=== PATIENT | female | born 1940 | race Caucasian/White ===

== ENCOUNTER → 2016-12-07 | Outpatient (CLI) | payer MEDICARE, BC ==
--- NOTE | 2016-12-08 10:02 | ECHOF ---
Referral Reason:R94.31 Abnormal EKG MEASUREMENTS -------- HEIGHT: 165.1 cm WEIGHT: 68.0 kg BP: 151/69 IVSd: 1.4 cm (0.6 - 1.1) LVIDd: 3.1 cm (3.9 - 5.3) LVPWd: 1.2 cm (0.6 - 1.1) IVSs: 1.8 cm LVIDs: 1.9 cm LVPWs: 1.6 cm LAESV Index (A-L): 21.24 ml/m Ao Diam: 3.2 cm (2.0 - 3.7) AV Cusp: 1.8 cm (1.5 - 2.6) LA Diam: 3.6 cm (2.7 - 3.8) MV EXCURSION: 13.883 mm (> 18.000) MV EF SLOPE: 44 mm/s (70 - 150) EPSS: 0.3 cm MV E Jay: 0.99 m/s MV DecT: 168 ms MV A Jay: 1.63 m/s MV E/A Ratio: 0.61 RAP: 5.00 mmHg RVSP: 9.56 mmHg FINDINGS -------- Undetermined rhythm. This was a technically good study. There is moderate concentric left ventricular hypertrophy. There is mild global hypokinesis of LV . Overall left ventricular systolic function is mildly impaired with, an EF between 45 - 50 %. The right ventricle is normal in size and function. The left atrium is normal in size. The right atrium is normal in size. Aortic valve is trileaflet and is mildly thickened. The mitral valve leaflets are mildly thickened. Mild mitral regurgitation is present. Mild tricuspid regurgitation present. The right ventricular systolic pressure, as measured by Doppler, is 9.56mmHg. Pulmonic valve appears structurally normal. The aortic root size is normal. The pericardium is normal. CONCLUSIONS -------- 1. Undetermined rhythm. 2. Mild mitral regurgitation is present. 3. Mild tricuspid regurgitation present. 4. The right ventricular systolic pressure, as measured by Doppler, is 9.56mmHg. 5. Pulmonic valve appears structurally normal. 6. The aortic root size is normal. 7. The pericardium is normal. 8. This was a technically good study. 9. There is moderate concentric left ventricular hypertrophy. 10. Overall left ventricular systolic function is mildly impaired with, an EF between 45 - 50 %. 11. The right ventricle is normal in size and function. 12. The left atrium is normal in size. 13. The right atrium is normal in size. 14. Aortic valve is trileaflet and is mildly thickened. 15. The mitral valve leaflets are mildly thickened. TELETYPE TECHNICIAN: Viviana Gil RDCS
== END | disposition home or self-care (01) ==
LOC: RADECHMAIN 16:11
PROVIDERS: ATTEND Family Medicine
DX: I08.3 Combined rheumatic disorders of mitral, aortic and tricuspid valves (principal)
CPT/HCPCS: 93306

== ENCOUNTER → 2016-12-28 | Outpatient (CLI) | payer MEDICARE, BC ==
--- NOTE | 2016-12-29 07:20 | XR ---
EXAMINATION TYPE: XR abdomen 1V , 2 VIEWS DATE OF EXAM ORDERED: 12/28/2016 HISTORY: K59.00 Constipation. COMPARISON: None. FINDINGS: There has been a dynamic left hip pinning. The abdominal gas pattern is within normal limits. There is no evidence of obstruction or free air. T here are phleboliths within the pelvis. There is a moderate stool load. IMPRESSION: CONSTIPATION.
== END ==
LOC: RADXRMAIN 15:47
PROVIDERS: ATTEND Family Medicine
DX: K59.00 Constipation, unspecified (principal)
CPT/HCPCS: 74000

== ENCOUNTER 2017-01-20 06:53 | Day surgery (SDC) | payer MEDICARE, BC ==
[2017-01-18 10:31] VITALS: BMI 21.4
[~2017-01-20 06:53] MED LIST: LACTATED RINGERS 1,000 ML IV SCH; LIDOCAINE 1% 20 ML VIAL (10MG/ML) FOR IV START INTRADERMA PRN
[2017-01-20 07:12] VITALS: RESP 18; TEMP 97.3
[2017-01-20 07:14] LABS: Glucose,Whole Blood 164 mg/dL (75-99)
--- NOTE | 2017-01-20 07:31 | P.GSHP ---
History of Present Illness H&P Date: 01/20/17 CHIEF COMPLAINT: Colon screen HISTORY OF PRESENT ILLNESS: The patient is a 76-year-old female who presents for colon screen. Lower endoscopy was offered for further evaluation and management. PAST MEDICAL HISTORY: Please see list. PAST SURGICAL HISTORY: Please see list. MEDICATIONS: Please see list. ALLERGIES: Please see list. SOCIAL HISTORY: No illicit drug use FAMILY HISTORY: No reports of Crohn disease or ulcerative colitis. REVIEW OF ORGAN SYSTEMS: CONSTITUTIONAL: No reports of fevers or chills. PHYSICAL EXAM: VITAL SIGNS: Stable GENERAL: Well-developed pleasant in no acute distress. HEENT: No scleral icterus. Extraocular movements grossly intact. Moist buccal mucosa. NECK: Supple without lymphadenopathy. CHEST: Unlabored respirations. Equal bilateral excursions. CARDIOVASCULAR: Regular rate and rhythm. Distal 2+ pulses. ABDOMEN: Soft, nontender, nondistended. MUSCULOSKELETAL: No clubbing, cyanosis, or edema. ASSESSMENT: 1. Colon screen. PLAN: 1. Recommend proceeding with a lower endoscopy Past Medical History Past Medical History: CVA/TIA, Diabetes Mellitus, Hypertension, Osteoarthritis ( OA), Sleep Apnea/CPAP/BIPAP Additional Past Medical History / Comment(s): migraines, TIA, hx fx left hip- uses cane due to balance problems, no cpap used, hiatal hernia, irregular bowel movements, constipation, frequent night time urination, insulin pump History of Any Multi-Drug Resistant Organisms: None Reported Past Surgical History: Appendectomy, Ear Surgery, Hysterectomy, Tonsillectomy Additional Past Surgical History / Comment(s): D&C x 2, shmuel cataracts, left ear cochlear implant Past Anesthesia/Blood Transfusion Reactions: Previous Problems w/ Anesthesia Additional Past Anesthesia/Blood Transfusion Reaction / Comment(s): slow coming out of anesthesia Past Psychological History: Anxiety Smoking Status: Never smoker Past Alcohol Use History: None Reported Past Drug Use History: None Reported - Past Family History Son(s) Family Medical History: Cancer Medications and Allergies Home Medications Medication Instructions Recorded Confirmed Type Cholecalciferol [Vitamin D3] 1,000 unit PO DAILY 01/18/17 01/20/17 History Insulin Glulisine (For Pump) 0.01 units SQ-PUMP CONTINUOUS 01/18/17 01/20/17 History [Apidra (For Pump)] L.acidoph,Paracasei, B.lactis 1 each PO DAILY 01/18/17 01/20/17 History [Probiotic] Multivitamins, Thera [Multivitamin 1 tab PO DAILY 01/18/17 01/20/17 History (formulary)] Pramipexole [Mirapex] 0.5 mg PO HS 01/18/17 01/20/17 History Rosuvastatin [Crestor] 20 mg PO HS 01/18/17 01/20/17 History Vit C/E/Zn/Coppr/Lutein/Zeaxan 1 each PO DAILY 01/18/17 01/20/17 History [Preservision Areds 2 Softgel] amLODIPine [Norvasc] 10 mg PO HS 01/18/17 01/20/17 History Allergies Allergy/AdvReac Type Severity Reaction Status Date / Time No Known Allergies Allergy Verified 01/18/17 10:54 Surgical - Exam Vital Signs Temp Pulse Resp BP Pulse Ox 97.3 F L 81 18 159/72 96 01/20/17 07:09 01/20/17 07:09 01/20/17 07:09 01/20/17 07:09 01/20/17 07:09 Results - Labs Abnormal Lab Results - Last 24 Hours (Table) 01/20/17 Range/Units 07:12 POC Glucose (mg/dL) 164 H (75-99) mg/dL
[2017-01-20] MEDS ORDERED: LIDOCAINE 1% INJ 10MG/ML (20 ML MDV) ONE (07:32)
[2017-01-20] MEDS ORDERED: PROPOFOL 10 MG/ML 20 ML VIAL IV ONE (07:32)
[2017-01-20 07:37] LABS: Basophils # (A) 0.1 k/uL (0-0.2); Basophils % (A) 1 %; CH 30.3; CHCM 34.2; Eosinophils # (A) 0.3 k/uL (0-0.7); Eosinophils % (A) 4 %; HCT 40.9 % (34.0-46.0); HDW 2.48; HGB 13.5 gm/dL (11.4-16.0); Luc # (Auto) 0.14; Luc % (Auto) 2; Lymphocytes # (A) 1.7 k/uL (1.0-4.8); Lymphocytes % (A) 25 %; MCH 29.5 pg (25.0-35.0); MCHC 33.1 g/dL (31.0-37.0); Mean Platelet Volume 7.4; Monocytes # (A) 0.5 k/uL (0-1.0); Monocytes % (A) 7 %; Neutrophils # (A) 4.1 k/uL (1.3-7.7); Neutrophils % (A) 61 %; RBC 4.59 m/uL (3.80-5.40); RDW 13.7 % (11.5-15.5); WBC 6.6 k/uL (3.8-10.6); WBC (Perox) 6.58
[2017-01-20 07:59] LABS: Anion Gap 10 mmol/L; Blood Urea Nitrogen 7 mg/dL (7-17); Carbon Dioxide 25 mmol/L (22-30); Chloride 99 mmol/L (98-107); Non-African American GFR(MDRD) >60 (>60 ml/min/1.73 sqM); Potassium 4.4 mmol/L (3.5-5.1); Sodium 134 mmol/L (137-145)
--- NOTE | 2017-01-20 08:02 | P.PCN ---
Date of Procedure: 01/20/17 Preoperative Diagnosis: Postoperative Diagnosis: Procedure(s) Performed: Implants: Indications for Procedure: Operative Findings: Description of Procedure: PREOPERATIVE DIAGNOSIS: Colonoscopy screening. Chronic constipation. POSTOPERATIVE DIAGNOSIS: Colonoscopy screening. Chronic constipation. Rectal polyp. Transverse colon polyp. External hemorrhoids. OPERATION: Colonoscopy to the proximal ascending colon. Colonoscopy with snare polypectomy and mid transverse colon. Colonoscopy with cold forceps biopsy at rectum. SURGEON: Dia Easley MD. ANESTHESIA: MAC. INDICATIONS: The patient is a 76-year-old female who presents for colonoscopy screening. Benefits and risks were described and informed consent was obtained. DESCRIPTION OF PROCEDURE: The patient had undergone Gatorade, MiraLAX and Dulcolax prep. She had been brought into the operating room and laid in the left lateral decubitus position. After adequate intravenous sedation, the rectum was examined with 2% lidocaine jelly. External hemorrhoids were encountered. The rectal tone was within normal limits. No lesions were palpated in the rectal vault. She had moderately redundant and floppy sigmoid colon where abdominal pressure was used to advance the scope. Given the length of her colon, the Olympus colonoscope was advanced to the ascending colon. The prep was fair with moderate liquid stool, nonadherent. The scope was removed with visualization of each mucosal fold. No scattered diverticulosis was encountered. The mid transverse colon, a flat 8 mm adenoma was snare polypectomy to completion. At the rectum, a 4 mm hyperplastic polyp was cold forceps biopsy. No evidence of focal colitis was found. Retroflexion of the scope demonstrated grade 2 internal hemorrhoids without active bleeding or inflammation. The colon was desufflated. The patient had tolerated the procedure well. Withdrawal time was over 6 minutes. FINDINGS: Internal hemorrhoids, grade 1 No external prolapsed hemorrhoids. No arteriovenous malformations. The mid transverse colon, a flat 8 mm adenoma was snare polypectomy to completion. At the rectum, a 4 mm hyperplastic polyp was cold forceps biopsy. No focal colitis. RECOMMENDATIONS: Lower endoscopy in 3-5 years with personal history of colon polyps. She is scheduled for a sigmoid colectomy for history of sigmoid volvulus. Plan - Discharge Summary New Discharge Prescriptions: No Action Rosuvastatin [Crestor] 20 mg PO HS Multivitamins, Thera [Multivitamin (formulary)] 1 tab PO DAILY Pramipexole [Mirapex] 0.5 mg PO HS amLODIPine [Norvasc] 10 mg PO HS L.acidoph,Paracasei, B.lactis [Probiotic] 1 each PO DAILY Insulin Glulisine (For Pump) [Apidra (For Pump)] 0.01 units SQ-PUMP CONTINUOUS Cholecalciferol [Vitamin D3] 1,000 unit PO DAILY Vit C/E/Zn/Coppr/Lutein/Zeaxan [Preservision Areds 2 Softgel] 1 each PO DAILY Discharge Medication List Cholecalciferol [Vitamin D3] 1,000 unit PO DAILY 01/18/17 [History] Insulin Glulisine (For Pump) [Apidra (For Pump)] 0.01 units SQ-PUMP CONTINUOUS 01/18/17 [History] L.acidoph,Paracasei, B.lactis [Probiotic] 1 each PO DAILY 01/18/17 [History] Multivitamins, Thera [Multivitamin (formulary)] 1 tab PO DAILY 01/18/17 [History ] Pramipexole [Mirapex] 0.5 mg PO HS 01/18/17 [History] Rosuvastatin [Crestor] 20 mg PO HS 01/18/17 [History] Vit C/E/Zn/Coppr/Lutein/Zeaxan [Preservision Areds 2 Softgel] 1 each PO DAILY [History] amLODIPine [Norvasc] 10 mg PO HS 01/18/17 [History] Follow up Appointment(s)/Referral(s): Dia Easley MD [STAFF PHYSICIAN] - 01/25/17 (For your surgery) Patient Instructions/Handouts: Constipation (GEN), Laparoscopic Bowel Resection (DC), Colectomy (DC) Activity/Diet/Wound Care/Special Instructions: Full liquid diet until Wednesday. Please start bowel prep on Wednesday. Discharge Disposition: HOME SELF-CARE
[2017-01-20 08:19] LABS: Glucose,Whole Blood 165 mg/dL (75-99)
[2017-01-20 08:25] VITALS: BP 143/78; PULSE 77
--- NOTE | 2017-01-20 08:34 | XR ---
2 view abdomen HISTORY: Abdomen pain and distention 2 views of the abdomen are submitted Dilated loops of colon likely due to patient's procedure. No evident pneumoperitoneum. Lung bases are clear. Postop change noted to the left hip. Bone mineralization is reduced. Probable phleboliths in the pelvis, vascular calcifications are extensive. IMPRESSION: Postprocedural findings as described, follow-up as indicated.
== END 2017-01-20 09:13 | disposition home or self-care (01) ==
LOC: ORWHC2ENDO 06:53
PROVIDERS: ATTEND Surgery Plastic and Reconstructive Surgery
DX: K63.5 Polyp of colon (principal); K64.0 First degree hemorrhoids; K64.4 Residual hemorrhoidal skin tags; I10 Essential (primary) hypertension; G47.33 Obstructive sleep apnea (adult) (pediatric); E11.9 Type 2 diabetes mellitus without complications; Z79.4 Long term (current) use of insulin; Z96.41 Presence of insulin pump (external) (internal); Q43.8 Other specified congenital malformations of intestine; Z86.73 Personal history of transient ischemic attack (TIA), and cerebral infarction without residual deficits; M19.90 Unspecified osteoarthritis, unspecified site; Z79.899 Other long term (current) drug therapy
CPT/HCPCS: 45380; 45385; 74020; 80051; 82565; 84520; 85025; 86850; 86900; 86901; 88305

== ENCOUNTER 2017-01-25 07:30 | Inpatient (IN) | payer MEDICARE, BC ==
[2017-01-18 11:04] VITALS: BMI 21.4
[~2017-01-25 07:30] MED LIST changes: +DEXAMETHASONE SOD PHOSPHATE 10 MG/ML 1 ML VIAL IV ONE; +HEPARIN SODIUM,PORCINE 5,000 UNIT/ML 1 ML VIAL SQ ONE; +HYDROmorphone 1 MG/ML 1 ML SYRINGE IVP PRN; -LACTATED RINGERS 1,000 ML IV SCH; -LIDOCAINE 1% 20 ML VIAL (10MG/ML) FOR IV START INTRADERMA PRN; +ONDANSETRON 4 MG/2 ML VIAL IVP ONE; +ceFAZolin 2 GM in SODIUM CHLORIDE 0.9% 100 ML IVPB ONE; +metroNIDAZOLE-NS PMX 500 MG in SALINE 1 100ML.BAG IVPB ONE
--- NOTE | 2017-01-25 11:21 | P.GSHP ---
History of Present Illness H&P Date: 01/25/17 CHIEF COMPLAINT: History of sigmoid volvulus HISTORY OF PRESENT ILLNESS: The patient is a 76-year-old female with long- standing history of chronic constipation including large bowel obstruction secondary to sigmoid volvulus. She completed a colonoscopy which excluded underlying neoplasm. Now she presents for sigmoid colon resection. PAST MEDICAL HISTORY: Please see list. PAST SURGICAL HISTORY: Please see list. MEDICATIONS: Please see list. ALLERGIES: Please see list. SOCIAL HISTORY: No illicit drug use FAMILY HISTORY: No reports of Crohn disease or ulcerative colitis. REVIEW OF ORGAN SYSTEMS: CONSTITUTIONAL: Denies any fever or chills. HEENT: Denies any trouble with vision or nosebleeds. No difficulty swallowing. She is hard of hearing. LYMPHATIC: The patient denies any lumps and bumps around the neck. ENDOCRINE: Denies any thyroid disorders. Has blood sugar glucose intolerance. RESPIRATORY: Denies pneumonia. Denies any troubles with breathing or dyspnea on exertion. CARDIOVASCULAR: Denies any chest pain, palpitations, or recent heart attacks. 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 GASTROINTESTINAL: Has constipation and recent colonoscopy 1 week ago. GENITOURINARY: Has increased urinary frequency. MUSCULOSKELETAL: Has back pain, stiffness, joint arthritis. NEUROLOGIC: Denies any numbness or tingling along the distal extremities. No seizure disorders or headaches. PSYCHIATRIC: Denies depression or suidical ideation. HEMATOLOGIC: Denies any abnormal bleeding or bruising. PHYSICAL EXAM: VITAL SIGNS: Stable GENERAL: Well-developed pleasant in no acute distress. HEENT: No scleral icterus. Extraocular movements grossly intact. Moist buccal mucosa. He is hard of hearing. NECK: Supple without lymphadenopathy. CHEST: Unlabored respirations. Equal bilateral excursions. CARDIOVASCULAR: Regular rate and rhythm. Distal 2+ pulses. ABDOMEN: Soft, nontender, nondistended. MUSCULOSKELETAL: No clubbing, cyanosis, or edema. NERUO: Regular 2-12 grossly intact. PSYCH: Alert and oriented to person place and time. ASSESSMENT: 1. History of previous large bowel obstruction. 2. Sigmoid volvulus. 3. Insulin-dependent diabetes type 2. 4. Hypertensive heart disease with cardiomyopathy. PLAN: 1. Benefits and risks of surgical intervention particular sigmoid volvulus reviewed in detail. Robotic-assisted approach was also described. 2. She has completed an enhanced colon recovery program. 3. DVT prophylaxis. 4. Antibiotic prophylaxis. Past Medical History Past Medical History: CVA/TIA, Diabetes Mellitus, Hypertension, Osteoarthritis ( OA), Sleep Apnea/CPAP/BIPAP Additional Past Medical History / Comment(s): migraines, TIA, hx fx left hip- uses cane due to balance problems, no cpap used, hiatal hernia, irregular bowel movements, constipation, frequent night time urination, insulin pump History of Any Multi-Drug Resistant Organisms: None Reported Past Surgical History: Appendectomy, Ear Surgery, Hysterectomy, Tonsillectomy Additional Past Surgical History / Comment(s): D&C x 2, shmuel cataracts, left ear cochlear implant Past Anesthesia/Blood Transfusion Reactions: Previous Problems w/ Anesthesia Additional Past Anesthesia/Blood Transfusion Reaction / Comment(s): slow coming out of anesthesia Past Psychological History: Anxiety Smoking Status: Never smoker Past Alcohol Use History: None Reported Past Drug Use History: None Reported - Past Family History Son(s) Family Medical History: Cancer Medications and Allergies Home Medications Medication Instructions Recorded Confirmed Type Cholecalciferol [Vitamin D3] 1,000 unit PO DAILY 01/18/17 01/20/17 History Insulin Glulisine (For Pump) 0.01 units SQ-PUMP CONTINUOUS 01/18/17 01/20/17 History [Apidra (For Pump)] L.acidoph,Paracasei, B.lactis 1 each PO DAILY 01/18/17 01/20/17 History [Probiotic] Multivitamins, Thera [Multivitamin 1 tab PO DAILY 01/18/17 01/20/17 History (formulary)] Pramipexole [Mirapex] 0.5 mg PO HS 01/18/17 01/20/17 History Rosuvastatin [Crestor] 20 mg PO HS 01/18/17 01/20/17 History Vit C/E/Zn/Coppr/Lutein/Zeaxan 1 each PO DAILY 01/18/17 01/20/17 History [Preservision Areds 2 Softgel] amLODIPine [Norvasc] 10 mg PO HS 01/18/17 01/20/17 History Allergies Allergy/AdvReac Type Severity Reaction Status Date / Time No Known Allergies Allergy Verified 01/18/17 10:54
[2017-01-25 11:41] LABS: Glucose,Whole Blood 273 mg/dL (75-99)
[2017-01-25] MEDS ORDERED: LIDOCAINE 1% 20 ML VIAL (10MG/ML) FOR IV START INTRADERMA ONE ×2 (11:49→12:09)
[2017-01-25] MEDS: LACTATED RINGERS 1,000 ML IV SCH ×2 (11:49→12:12)
[2017-01-25] MEDS ORDERED: INSULIN LISPRO (humaLOG) 300 UNIT/3 ML VIAL SQ ONE (12:01)
[2017-01-25] MEDS ORDERED: LIDOCAINE 1% INJ 10MG/ML (20 ML MDV) ONE (12:24)
[2017-01-25] MEDS ORDERED: PROPOFOL 10 MG/ML 20 ML VIAL IV ONE (12:24)
[2017-01-25] MEDS ORDERED: GLYCOPYRROLATE 0.2 MG/ML 2 ML VIAL ONE (12:24)
[2017-01-25] MEDS ORDERED: fentaNYL (PF) 50 MCG/ML 2 ML AMP ONE (12:24)
[2017-01-25] MEDS ORDERED: VECURONIUM 10 MG VIAL IV ONE (12:24)
[2017-01-25] MEDS ORDERED: NEOSTIGMINE 1 MG/ML 10 ML VIAL ONE (12:24)
[2017-01-25] MEDS ORDERED: ePHEDrine SULFATE/0.9% NACL/PF 50 MG/5 ML SYRINGE IV ONE (12:24)
[2017-01-25] MEDS ORDERED: SUCCINYLCHOLINE CHLORIDE 100 MG/5 ML SYR IV ONE (12:24)
[2017-01-25] MEDS ORDERED: BUPIVACAINE-EPI 0.5%-1:200,000 10 ML VIAL SQ ONE (13:00)
[2017-01-25 13:32] LABS: Glucose,Whole Blood 168 mg/dL (75-99)
[2017-01-25 14:42] LABS: Glucose,Whole Blood 152 mg/dL (75-99)
[2017-01-25] MEDS ORDERED: HYDROmorphone 1 MG/ML 1 ML SYRINGE IVP PRN ×2 (15:44→20:56)
[2017-01-25] MEDS ORDERED: BENZOCAINE/MENTHOL LOZENG 1 EACH LOZENGE MUCOUS MEM PRN (15:44)
--- NOTE | 2017-01-25 15:44 | P.PCN ---
Date of Procedure: 01/25/17 Preoperative Diagnosis: History of large bowel obstruction, chronic constipation, sigmoid volvulus Postoperative Diagnosis: Same Procedure(s) Performed: Robotic assisted laparoscopic reduction of sigmoid volvulus with sigmoid colectomy Implants: Anesthesia: GETA, local Surgeon: Dia Easley Estimated Blood Loss (ml): 5 Pathology: other (Sigmoid volvulus) Condition: stable Disposition: floor Indications for Procedure: Operative Findings: 1. Active sigmoid volvulus involving redundant sigmoid colon over 1.5 feet of colon involved. 2. Linear intracorporeal anastomosis colorectal anastomosis using 45 mm blue staple load. 3. At least 8 staplers robotic used, 45 mm blue load. 4. Robotic arms using multiport, stapler along the right lower quadrant. 5. All ports place 15 to 20 cm away from target anatomy, the sigmoid colon. 6. Specimen extracted from the right upper quadrant port. 7. Contaminated case as liquid stool found within the remnant sigmoid colon for anastomosis. Description of Procedure:
[2017-01-25 15:59] LABS: Glucose,Whole Blood 186 mg/dL (75-99)
--- NOTE | 2017-01-25 16:59 | P.OP ---
Date of Procedure: 01/25/17 Preoperative Diagnosis: Postoperative Diagnosis: Procedure(s) Performed: Implants: Condition: other Indications for Procedure: Operative Findings: Description of Procedure: SURGEON: SHAVONNE QUIJANO MD HAND COMPOSITOR: DAVINA SHAFFER PREOPERATIVE DIAGNOSES: 1. Sigmoid volvulus. 2. History of chronic large bowel obstruction. 3. Chronic constipation. 4. Diabetes type 2 insulin dependence. 5. Hypertensive heart disease with cardiomyopathy. 6. Previous history of cerebrovascular accident. 7. Obstructive sleep apnea. History of cochlear implant with history of deafness POSTOPERATIVE DIAGNOSES: 1. Sigmoid volvulus. 2. History of chronic large bowel obstruction. 3. Chronic constipation. 4. Diabetes type 2 insulin dependence. 5. Hypertensive heart disease with cardiomyopathy. 6. Previous history of cerebrovascular accident. 7. Obstructive sleep apnea. OPERATION: 1. Robotic-assisted laparoscopic reduction of sigmoid volvulus with sigmoid colectomy and primary colo-Fullerton rectal anastomosis ANESTHESIA: General with 30 mL Marcaine with epinephrine. ESTIMATED BLOOD LOSS: 5 mL SPECIMENS REMOVED: 1.5 foot sigmoid colon with volvulus. FINDINGS: 1. Active sigmoid volvulus involving redundant sigmoid colon over 1.5 feet of colon involved. 2. Linear intracorporeal anastomosis colorectal anastomosis using 45 mm blue staple load. 3. At least 8 staplers robotic used, 45 mm blue load. 4. Robotic arms using multiport, stapler along the right lower quadrant. 5. All ports place 15 to 20 cm away from target anatomy, the sigmoid colon. 6. Specimen extracted from the right upper quadrant port. 7. Contaminated case as liquid stool found within the remnant sigmoid colon for anastomosis. INDICATIONS: The patient is a 76-year-old female who presents with several year history of chronic and recurrent large bowel obstruction including chronic constipation. Diagnostic studies are consistent with sigmoid volvulus. Surgical options were described to the patient and her family including colon resection and possible colostomy. Benefits and risks, including infection, possibility for additional surgery, including possible colostomy was discussed at length. Informed consent was obtained. All questions of the patient and family were answered. DESCRIPTION: Earlier the patient had undergone a bowel prep using the enhanced colon recovery program. The patient was transferred to the operating room onto a split leg table. The patient was then intubated. A Bradley catheter was placed. The abdomen was then prepped and draped in standard sterile fashion. After a timeout protocol was performed, attention was then brought to the left upper quadrant whereby a 0 degree 5 mm laparoscopic trocar entry was performed. The abdominal cavity was entered and insufflated to 15 mmHg pressure, which she tolerated well. Diagnostic laparoscopy confirmed an active sigmoid volvulus with moderately distended sigmoid colon causing intermittent large bowel obstruction. The sigmoid colon was moderately redundant. No additional intra-abdominal adhesions were found. Next an robotic 8-mm trocar was placed along the left lateral abdominal wall 20 cm proximal from the pelvis. A 12 mm port was placed along the epigastrium and followed by another robotic 13-mm port placed along the right lateral abdominal wall. Ports were placed 10 to 13 cm apart from each other including 15-20 cm away from the target anatomy of the left pelvis. The 5-mm port was exchanged for an 8 mm robotic port. The stapler 13-mm port was arranged along the right lateral abdominal wall. The patient was then placed in Trendelenburg position. The anterior surface of the volvulized sigmoid colon was marked using indelible marker. The robotic da Kenneth SI system was primed. The robot was docked between the legs of the patient. Using a grasper for arm 1, a grasper for arm 2, including hook vessel sealer for arm 1, the robotic system was docked and primed as described. Instruments were interchanged by the political science research assistant including hook cautery, needle tow car driver, robotic stapler and vessel sealer. The robot stapler was prepared along the right lateral abdominal wall. Next, attention was brought to identify the rectum. A stay suture using 0 silk was placed along the anterior serosa of the descending colon including along the rectum. An active sigmoid volvulus was identified and rotated along its normal anatomical position along its mesentery. The volvulus was reduced. The sigmoid mesentery was mobilized using a vessel sealer whereby the distal sigmoid colon was marked and tagged. Using 2 fires of the robot stapler 45 mm blue load, the distal redundant sigmoid colon was divided. The mesentery of the sigmoid colon was mobilized towards the descending colon using a vessel sealer. Next, the proximal sigmoid colon was divided using 2 fires of the robotic stapler 45 mm blue load. The descending colon was similarly marked using 2-0 Vicryl. The rest of the sigmoid colon mesentery was mobilized using vessel sealer. The distal colorectal stump was tacked to the anterior dominant wall using 2-0 Vicryl as a stay stitch. The proximal and distal colon was brought in an isoperistaltic fashion after placing interrupted sutures along the proposed brittany- lumen using 2-0 Vicryl. Along the tinea coli of the proximal including distal limbs, a colotomy was prepared along both limbs. Next, a 45 mm stapler was fired to create the brittany-lumen. The colotomy of the brittany-lumen was reapproximated using 2-0 Vicryl followed by 2 firings of a 45 mm blue load. Stool was identified along the proximal limb hence making it a contaminated case. All needles were removed from the abdominal cavity. The robot was undocked. I re-scrubbed into the case. Via the 12 mm port, the closed colotomy was removed using Endo Catch bag. All sponges were removed from the abdominal cavity. The distal portion of the resected colon was brought out through the 12 mm trocar of the right upper quadrant quadrant after widening the skin incision. The distal end of the colon which had been tagged using a fenestrated grasper was then brought out through the incision. No contamination had occurred throughout this portion of the case. Next, the specimen was brought out through the skin incision. The 12-mm fascial defect was oversewn using 0 Vicryl and a Gab Garcia. Similarly, the 13 mm trocar site of the right lower quadrant was also oversewn along its fascia using 0 Vicryl and a Gab Garcia. Next all pneumoperitoneum was evacuated from the abdominal cavity. The 8-mm trocar sites were reapproximated using 4-0 Monocryl in an interrupted subcuticular fashion. The larger trocar sites were irrigated using warm normal saline solution of the colon extraction site. Suture 3-0 Vicryl was used to reapproximate the subcutaneous tissue followed by 4-0 Monocryl in an interrupted subcuticular fashion. Local anesthetic was infiltrated to all wounds for postop analgesia. The rest of the incisions were also cleansed with diluted hydrogen peroxide. An Optifoam surgical dressing was placed over the epigastrium of the colon extraction site. Dermabond was applied to the rest of the skin incisions. The patient had tolerated the procedure well. Estimated blood loss was approximately 5 mL. The patient was extubated successfully. Intraoperative photos were reviewed with the patient's family who were overall pleased with the level of care. The patient was transferred to the postanesthesia care unit in stable condition.
[2017-01-25 17:09] LABS: Glucose,Whole Blood 223 mg/dL (75-99)
[2017-01-25] MEDS: ceFAZolin 2 GM in SODIUM CHLORIDE 0.9% 100 ML IVPB SCH ×2 (17:43→23:16)
[2017-01-25] MEDS: INSULIN LISPRO (humaLOG) 300 UNIT/3 ML VIAL SQ SCH (17:50)
[2017-01-25] MEDS: ONDANSETRON 4 MG/2 ML VIAL IVP PRN (18:33)
[2017-01-25] MEDS: metroNIDAZOLE-NS PMX 500 MG in SALINE 1 100ML.BAG IVPB SCH (19:19)
[2017-01-25 20:24] LABS: Glucose,Whole Blood 217 mg/dL (75-99)
--- NOTE | 2017-01-25 20:58 | P.PN ---
Progress Note - Text Patient seen and evaluated. Pain is controlled. Await passage of flatus. Potential discharge in 24-48 hours.
[2017-01-25] MEDS: PRAMIPEXOLE 0.5 MG TAB PO SCH (21:00)
[2017-01-25] MEDS: amLODIPine 10 MG TAB PO SCH (21:00)
[2017-01-25] MEDS: SODIUM CHLORIDE 0.9% 1,000 ML IV SCH (21:08)
[2017-01-26] MEDS: metroNIDAZOLE-NS PMX 500 MG in SALINE 1 100ML.BAG IVPB SCH ×5 (01:28→23:07)
[2017-01-26 07:36] LABS: Glucose,Whole Blood 265 mg/dL (75-99)
[2017-01-26] MEDS: SODIUM CHLORIDE 0.9% 1,000 ML IV SCH ×3 (08:03→20:24)
[2017-01-26] MEDS: INSULIN LISPRO (humaLOG) 300 UNIT/3 ML VIAL SQ SCH ×3 (08:05→17:16)
[2017-01-26] MEDS: ceFAZolin 2 GM in SODIUM CHLORIDE 0.9% 100 ML IVPB SCH ×2 (08:07→17:11)
[2017-01-26 08:13] LABS: Anion Gap 13 mmol/L; Blood Urea Nitrogen 13 mg/dL (7-17); Calcium 9.3 mg/dL (8.4-10.2); Carbon Dioxide 24 mmol/L (22-30); Chloride 97 mmol/L (98-107); Glucose 259 mg/dL (74-99); Magnesium 1.5 mg/dL (1.6-2.3); Non-African American GFR(MDRD) >60 (>60 ml/min/1.73 sqM); Potassium 4.4 mmol/L (3.5-5.1); Sodium 134 mmol/L (137-145)
[2017-01-26 08:30] LABS: Basophils % (A) 0 %; CH 30.4; CHCM 34.2; Eosinophils % (A) 0 %; HCT 41.2 % (34.0-46.0); HDW 2.48; HGB 14.1 gm/dL (11.4-16.0); Luc # (Auto) 0.05; Luc % (Auto) 0; Lymphocytes # (A) 0.5 k/uL (1.0-4.8); Lymphocytes % (A) 4 %; MCH 30.4 pg (25.0-35.0); MCHC 34.1 g/dL (31.0-37.0); MCV 89.1 fL (80.0-100.0); Mean Platelet Volume 8.2; Monocytes # (A) 0.5 k/uL (0-1.0); Monocytes % (A) 3 %; Neutrophils # (A) 14.5 k/uL (1.3-7.7); Neutrophils % (A) 93 %; RBC 4.63 m/uL (3.80-5.40); RDW 13.9 % (11.5-15.5); WBC 15.5 k/uL (3.8-10.6); WBC (Perox) 15.89
[2017-01-26] MEDS: MAGNESIUM SULFATE-D5W PMX 1 GM in DEXTROSE/WATER 1 100ML.BAG IVPB SCH ×4 (10:34→18:56)
--- NOTE | 2017-01-26 11:36 | P.PN ---
Subjective 76-year-old female being seen this morning on rounds. Patient is postop done on January 25 Robotic-assisted laparoscopic reduction of sigmoid volvulus with sigmoid colectomy and primary colo-[place] rectal anastomosis dressings to surgical site dry. Patient states not passing gas no stool. White count this morning 15.5 patient is afebrile temp is 98.6. Clear liquid diet has been initiated noted that the mag was low at 1.5 this morning replacement is being given patient has a history of cochlear implant with history of deafness Patient is a 76-year-old female who has a several year history of chronic and recurrent large bowel obstruction including chronic constipation. 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 Objective - Vital Signs Vital signs: Vital Signs Temp 98.6 F 01/26/17 07:27 Pulse 84 01/26/17 07:27 Resp 16 01/25/17 17:02 BP 149/70 01/26/17 07:27 Pulse Ox 95 01/26/17 07:27 Intake & Output 01/25/17 01/26/17 01/26/17 18:59 06:59 18:59 Intake Total 1800 1250 Output Total 825 600 Balance 975 1250 -600 Weight 65.771 kg Intake: IV 1800 Intake, IV Titration 1250 Amount Sodium Chloride 0.9% 1, 1050 000 ml @ 100 mls/hr IV . Q10H EFRAIN Rx#:[id number] metroNIDAZOLE-NS PMX 500 200 mg In Saline 1 100ml.bag @ 100 mls/hr IVPB Q6HR EFRAIN Rx#:[id number] Output: Urine 820 600 Estimated Blood Loss 5 Other: Voiding Method Indwelling Catheter Indwelling Catheter - Exam Physical exam Very pleasant 76-year-old female who is deaf resting in bed daughter at bedside Lungs essentially clear with adequate air movement on room air no shortness of breath no cough Heart S1-S2 audible regular Abdomen surgical sites dry soft and not distended slight surgical tenderness few hypoactive bowel tones patient is urinating with no difficulty Extremities no edema - Labs CBC & Chem 7: 01/26/17 07:40 01/26/17 07:40 Labs: Abnormal Lab Results - Last 24 Hours (Table) 01/25/17 01/25/17 01/25/17 Range/Units 11:35 13:19 14:32 WBC (3.8-10.6) k/uL Neutrophils # (1.3-7.7) k/uL Lymphocytes # (1.0-4.8) k/uL Sodium (137-145) mmol/L Chloride (98-107) mmol/L Glucose (74-99) mg/dL POC Glucose (mg/dL) 273 H 168 H 152 H (75-99) mg/dL Magnesium (1.6-2.3) mg/dL 01/25/17 01/25/17 01/25/17 Range/Units 15:56 17:07 20:22 WBC (3.8-10.6) k/uL Neutrophils # (1.3-7.7) k/uL Lymphocytes # (1.0-4.8) k/uL Sodium (137-145) mmol/L Chloride (98-107) mmol/L Glucose (74-99) mg/dL POC Glucose (mg/dL) 186 H 223 H 217 H (75-99) mg/dL Magnesium (1.6-2.3) mg/dL 01/26/17 01/26/17 01/26/17 Range/Units 07:32 07:40 07:40 WBC 15.5 H (3.8-10.6) k/uL Neutrophils # 14.5 H (1.3-7.7) k/uL Lymphocytes # 0.5 L (1.0-4.8) k/uL Sodium 134 L (137-145) mmol/L Chloride 97 L (98-107) mmol/L Glucose 259 H (74-99) mg/dL POC Glucose (mg/dL) 265 H (75-99) mg/dL Magnesium 1.5 L (1.6-2.3) mg/dL Assessment and Plan Plan: Impression Present on admission history of chronic constipation including large bowel obstruction secondary to sigmoid volvulus. Type 2 diabetes insulin-dependent History of a prior CVA History of cochlear implant with history of deafness Status post January 25 Robotic-assisted laparoscopic reduction of sigmoid volvulus with sigmoid colectomy and primary colo-[place] rectal anastomosis Electrolyte abnormality hypo-magnesium Plan Continue postop surgical care Clear liquid diet DVT and GI prophylaxis Increase activity Magnesium to be replaced Pain control Repeat labs in the morning IV antibiotic Flagyl and as ordered Further recommendations pending The above impression and plan of care have been discussed and directed by signing physician. Martine Kurtz nurse practitioner acting as scribe for signing physician.
[2017-01-26 11:43] LABS: Glucose,Whole Blood 301 mg/dL (75-99)
[2017-01-26 16:31] LABS: Glucose,Whole Blood 305 mg/dL (75-99)
[2017-01-26 18:10] LABS: Glucose,Whole Blood 300 mg/dL (75-99)
[2017-01-26] MEDS: amLODIPine 10 MG TAB PO SCH (20:25)
[2017-01-26] MEDS: PRAMIPEXOLE 0.5 MG TAB PO SCH (20:25)
[2017-01-26 21:49] LABS: Glucose,Whole Blood 182 mg/dL (75-99)
[2017-01-27] MEDS: ONDANSETRON 4 MG/2 ML VIAL IVP PRN ×2 (00:07→07:40)
[2017-01-27] MEDS: ceFAZolin 2 GM in SODIUM CHLORIDE 0.9% 100 ML IVPB SCH ×3 (00:57→20:27)
[2017-01-27] MEDS ORDERED: METOCLOPRAMIDE 5 MG/ML 2 ML VIAL IVP PRN (03:36)
[2017-01-27] MEDS: metroNIDAZOLE-NS PMX 500 MG in SALINE 1 100ML.BAG IVPB SCH ×3 (05:25→18:14)
[2017-01-27 05:42] LABS: Glucose,Whole Blood 128 mg/dL (75-99)
[2017-01-27 07:14] LABS: Glucose,Whole Blood 103 mg/dL (75-99)
[2017-01-27 07:49] LABS: Basophils % (A) 0 %; CH 29.7; Eosinophils # (A) 0.1 k/uL (0-0.7); Eosinophils % (A) 0 %; HCT 43.1 % (34.0-46.0); HDW 2.53; HGB 14.6 gm/dL (11.4-16.0); Luc # (Auto) 0.09; Luc % (Auto) 1; Lymphocytes # (A) 0.7 k/uL (1.0-4.8); Lymphocytes % (A) 5 %; MCH 29.6 pg (25.0-35.0); MCHC 33.8 g/dL (31.0-37.0); MCV 87.6 fL (80.0-100.0); Mean Platelet Volume 7.4; Monocytes # (A) 0.7 k/uL (0-1.0); Monocytes % (A) 4 %; Neutrophils # (A) 15.1 k/uL (1.3-7.7); Neutrophils % (A) 91 %; RBC 4.92 m/uL (3.80-5.40); RDW 13.5 % (11.5-15.5); WBC 16.7 k/uL (3.8-10.6); WBC (Perox) 17.11
[2017-01-27 07:59] LABS: Anion Gap 14 mmol/L; Blood Urea Nitrogen 15 mg/dL (7-17); Calcium 9.9 mg/dL (8.4-10.2); Carbon Dioxide 26 mmol/L (22-30); Chloride 99 mmol/L (98-107); Glucose 97 mg/dL (74-99); Magnesium 2.1 mg/dL (1.6-2.3); Non-African American GFR(MDRD) >60 (>60 ml/min/1.73 sqM); Phosphorous 2.7 mg/dL (2.5-4.5); Potassium 3.5 mmol/L (3.5-5.1); Sodium 139 mmol/L (137-145)
[2017-01-27] MEDS: ACETAMINOPHEN TAB 325 MG TAB PO PRN ×2 (10:56→23:57)
--- NOTE | 2017-01-27 11:06 | XR ---
EXAMINATION TYPE: XR abdomen acute w cxr DATE OF EXAM: 01/27/2017 COMPARISON: Prior abdomen 01/20/2017, prior chest x-ray 03/04/2012 HISTORY: Abdominal pain, bowel resection TECHNIQUE: 3 views of abdomen and chest xray on 4 views. FINDINGS: Chest x-ray is stable. There are overlying cardiac leads. There is no evidence for pneumoperitoneum. The bowel gas pattern is remarkable as there is air throughout nondilated small bowel. Large bowel loops mildly prominent. No sizeable air fluid levels. No mass effects are seen. No unusual calcifications. Postop changes are stable. There is a scoliosis. IMPRESSION: Mild prominence of large bowel loops is nonspecific.
[2017-01-27 11:49] LABS: Glucose,Whole Blood 111 mg/dL (75-99)
[2017-01-27] MEDS: 0.9% NACL WITH KCL 20 MEQ/L 1,000 ML IV SCH (13:09)
--- NOTE | 2017-01-27 14:25 | P.PN ---
Subjective 76-year-old female being seen sitting up in bed. Patient is deaf. Patient reports having an episode in the middle the night "I vomited". Currently sitting up drinking tea. Patient states has not passed gas to the rectum or been belching. Abdominal x-ray acute results reviewed no sizable air-fluid levels no mass. Mild prominence of large bowel loops is normocephalic. Patient is postop done on January 25 Robotic-assisted laparoscopic reduction of sigmoid volvulus with sigmoid colectomy and primary colo-[place] rectal anastomosis dressings to surgical site dry Objective - Vital Signs Vital signs: Vital Signs Temp 98 F 01/27/17 09:00 Pulse 95 01/27/17 09:00 Resp 15 01/27/17 09:00 BP 144/60 01/27/17 09:00 Pulse Ox 96 01/27/17 09:00 Intake & Output 01/26/17 01/27/17 01/27/17 18:59 06:59 18:59 Intake Total 1200 1250 240 Output Total 1300 75 Balance -100 1175 240 Intake: Intake, IV Titration 1200 600 Amount Magnesium Sulfate-D5w Pmx 400 100 1 gm In Dextrose/Water 1 100ml.bag @ 100 mls/hr IVPB Q1H EF[facility] Rx#: [id number] Sodium Chloride 0.9% 1, 800 000 ml @ 100 mls/hr IV . Q10H EFRAIN Rx#:[id number] ceFAZolin 2 gm In Sodium 200 Chloride 0.9% 100 ml @ 100 mls/hr IVPB Q8HR EFRAIN Rx#:[id number] metroNIDAZOLE-NS PMX 500 300 mg In Saline 1 100ml.bag @ 100 mls/hr IVPB Q6HR EFRAIN Rx#:[id number] Oral 650 240 Output: Urine 1300 Uretheral ([place]) 400 Emesis 75 Other: Voiding Method Toilet Toilet Toilet Bedside Commode # Voids 1 5 - Exam Physical exam Very pleasant 76-year-old female who is deaf sitting up in bed reports of nausea sensation no emesis Lungs essentially clear with adequate air movement on room air no shortness of breath no cough Heart S1-S2 audible regular denying chest pain Abdomen surgical sites dry soft not distended slight surgical tenderness few hypoactive bowel tones reports a nausea sensation no emesis no stool is not passing gas rectally Extremities no edema - Labs CBC & Chem 7: 08/16/17 06:55 01/27/17 06:55 Labs: Abnormal Lab Results - Last 24 Hours (Table) 01/26/17 01/26/17 01/26/17 Range/Units 07:40 16:29 18:09 WBC (3.8-10.6) k/uL Neutrophils # (1.3-7.7) k/uL Lymphocytes # (1.0-4.8) k/uL POC Glucose (mg/dL) 305 H 300 H (75-99) mg/dL Hemoglobin A1c 7.0 H (4.2-6.1) % 01/26/17 01/27/17 01/27/17 Range/Units 21:45 05:29 06:55 WBC 16.7 H (3.8-10.6) k/uL Neutrophils # 15.1 H (1.3-7.7) k/uL Lymphocytes # 0.7 L (1.0-4.8) k/uL POC Glucose (mg/dL) 182 H 128 H (75-99) mg/dL Hemoglobin A1c (4.2-6.1) % 01/27/17 01/27/17 Range/Units 07:10 11:48 WBC (3.8-10.6) k/uL Neutrophils # (1.3-7.7) k/uL Lymphocytes # (1.0-4.8) k/uL POC Glucose (mg/dL) 103 H 111 H (75-99) mg/dL Hemoglobin A1c (4.2-6.1) % Assessment and Plan Plan: Impression Present on admission history of chronic constipation including large bowel obstruction secondary to sigmoid volvulus. Type 2 diabetes insulin-dependent History of a prior CVA History of cochlear implant with history of deafness Status post January 25 Robotic-assisted laparoscopic reduction of sigmoid volvulus with sigmoid colectomy and primary colo-[place] rectal anastomosis Electrolyte abnormality hypo-magnesium corrected Leukocytosis persist Plan Continue postop surgical care Clear liquid diet DVT and GI prophylaxis Increase activity Increase activity Pain control Repeat labs in the morning IV antibiotic Flagyl and as ordered Further recommendations pending The above impression and plan of care have been discussed and directed by signing physician. Martine Kurtz nurse practitioner acting as scribe for signing physician.
[2017-01-27] MEDS ORDERED: POTASSIUM CHLORIDE ER 20 MEQ TAB.ER PO STA (14:28)
[2017-01-27] MEDS: INSULIN LISPRO (humaLOG) 300 UNIT/3 ML VIAL SQ SCH ×2 (14:34→18:18)
[2017-01-27] MEDS: METOCLOPRAMIDE 5 MG/ML 2 ML VIAL IVP SCH ×2 (14:43→20:27)
[2017-01-27 17:17] LABS: Glucose,Whole Blood 127 mg/dL (75-99)
[2017-01-27] MEDS: PRAMIPEXOLE 0.5 MG TAB PO SCH (20:27)
[2017-01-27] MEDS: amLODIPine 10 MG TAB PO SCH (20:27)
[2017-01-27] MEDS: LACTATED RINGERS 1,000 ML IV SCH (20:38)
[2017-01-27 21:35] LABS: Glucose,Whole Blood 92 mg/dL (75-99)
[2017-01-27] MEDS ORDERED: LEVOFLOXACIN 500MG-D5W PMX 500 MG in DEXTROSE/WATER 1 100ML.BAG IVPB SCH (23:00)
--- NOTE | 2017-01-27 23:07 | P.PN ---
Progress Note - Text Patient seen and evaluated this evening. Her daughter is at bedside. Patient reports that she gets vomiting at home from her hiatal hernia and acid reflux. She states her vomiting is completely unrelated to her procedure. No reports of nausea or vomiting. She is tolerating liquids. She reports "I feel like I have to have a bowel movement." Abdominal films reviewed demonstrating no free air. Gaseous distention of colon seen. Continue antibiotics for history of contaminated case. Repeat labs with expected reactive leukocytosis.
[2017-01-27] MEDS ORDERED: SODIUM CHLORIDE 0.9% 1,000 ML IV ONE (23:11)
[2017-01-28] MEDS: METOCLOPRAMIDE 5 MG/ML 2 ML VIAL IVP SCH ×3 (00:53→11:49)
[2017-01-28] MEDS: metroNIDAZOLE-NS PMX 500 MG in SALINE 1 100ML.BAG IVPB SCH ×2 (01:53→05:06)
[2017-01-28] MEDS: ACETAMINOPHEN TAB 325 MG TAB PO PRN (05:06)
[2017-01-28] MEDS: 0.9% NACL WITH KCL 20 MEQ/L 1,000 ML IV SCH ×2 (05:06→08:23)
[2017-01-28] MEDS: LACTATED RINGERS 1,000 ML IV SCH (05:56)
[2017-01-28 06:50] LABS: Glucose,Whole Blood 55 mg/dL (75-99)
[2017-01-28 07:05] LABS: Glucose,Whole Blood 61 mg/dL (75-99)
[2017-01-28 07:06] LABS: Basophils % (A) 0 %; CH 30.4; CHCM 33.6; Eosinophils # (A) 0.1 k/uL (0-0.7); Eosinophils % (A) 1 %; HCT 42.7 % (34.0-46.0); HDW 2.55; HGB 13.7 gm/dL (11.4-16.0); Luc # (Auto) 0.16; Luc % (Auto) 1; Lymphocytes # (A) 1.8 k/uL (1.0-4.8); Lymphocytes % (A) 14 %; MCH 29.2 pg (25.0-35.0); MCHC 32.2 g/dL (31.0-37.0); MCV 90.9 fL (80.0-100.0); Mean Platelet Volume 7.7; Monocytes # (A) 0.7 k/uL (0-1.0); Monocytes % (A) 6 %; Neutrophils # (A) 9.9 k/uL (1.3-7.7); Neutrophils % (A) 78 %; RDW 14.4 % (11.5-15.5); WBC 12.6 k/uL (3.8-10.6); WBC (Perox) 12.28
[2017-01-28] MEDS: INSULIN LISPRO (humaLOG) 300 UNIT/3 ML VIAL SQ SCH ×2 (07:13→11:38)
[2017-01-28 07:19] LABS: ALT 24 U/L (9-52); AST 28 U/L (14-36); Alkaline Phosphatase 65 U/L (38-126); Anion Gap 11 mmol/L; Blood Urea Nitrogen 10 mg/dL (7-17); Calcium 9.1 mg/dL (8.4-10.2); Carbon Dioxide 23 mmol/L (22-30); Chloride 107 mmol/L (98-107); Non-African American GFR(MDRD) >60 (>60 ml/min/1.73 sqM); Potassium 3.5 mmol/L (3.5-5.1); Sodium 141 mmol/L (137-145); Total Bilirubin 0.4 mg/dL (0.2-1.3); Total Protein 6.1 g/dL (6.3-8.2)
[2017-01-28 07:26] VITALS: BP 147/69; PULSE 90; RESP 12; TEMP 98.2
[2017-01-28 07:29] LABS: Glucose,Whole Blood 94 mg/dL (75-99)
[2017-01-28 07:36] LABS: Glucose 42 mg/dL (74-99)
--- NOTE | 2017-01-28 08:59 | P.PN ---
Subjective 76-year-old female seen and evaluated this morning sitting up in a chair. When questioning patient if the patient has been passing gas rectally the patient says no. no bowel movement. No nausea no vomiting. Patient's roommate inform the nursing staff that the patient had been passing gas rectally all during the night. Labs were reviewed the white count is down to 12.6 this morning was 16.7 yesterday the potassium is 3.5 blood sugars are running in the low side 90s to 60s patient is on a soft diet there's been no reports of nausea vomiting Patient is postop done on January 25 Robotic-assisted laparoscopic reduction of sigmoid volvulus with sigmoid colectomy and primary colo-[place] rectal anastomosis dressings to surgical site dry Objective - Vital Signs Vital signs: Vital Signs Temp 98.2 F 01/28/17 07:25 Pulse 90 01/28/17 07:25 Resp 12 01/28/17 07:25 BP 147/69 01/28/17 07:25 Pulse Ox 96 01/28/17 07:25 Intake & Output 01/27/17 01/28/17 01/28/17 18:59 06:59 18:59 Intake Total 1820 2350 Balance 1820 2350 Intake: Intake, IV Titration 1000 1900 Amount 0.9% NaCl with KCl 20 Meq 800 500 /l 1,000 ml @ 100 mls/hr IV .Q10H EFRAIN Rx#: [id number] Levofloxacin 500Mg-D5w 100 Pmx 500 mg In Dextrose/ Water 1 100ml.bag @ 100 mls/hr IVPB Q24H EFRAIN Rx#: [id number] Sodium Chloride 0.9% 1, 1000 000 ml @ 999 mls/hr IV . Q1H1M ONE Rx#:[id number] ceFAZolin 2 gm In Sodium 100 100 Chloride 0.9% 100 ml @ 100 mls/hr IVPB Q8HR EFRAIN Rx#:[id number] metroNIDAZOLE-NS PMX 500 100 200 mg In Saline 1 100ml.bag @ 100 mls/hr IVPB Q6HR EFRAIN Rx#:[id number] Oral 820 450 Other: Voiding Method Toilet Toilet # Voids 2 3 - Exam Physical exam 76-year-old female who is deaf is sitting up in a chair taking a diet pleasant cooperative oriented 3 Lungs essentially clear with adequate air movement on room air pulse ox sat 96% no cough noted Heart S1-S2 audible and regular no murmur denying chest pain Abdomen surgical dressings dry soft bowel tones noted no stool no reports of nausea vomiting not distended Extremities no edema noted - Labs CBC & Chem 7: 01/28/17 06:22 01/28/17 06:22 Labs: Abnormal Lab Results - Last 24 Hours (Table) 01/27/17 01/27/17 01/27/17 Range/Units 11:48 15:59 17:16 WBC (3.8-10.6) k/uL Neutrophils # (1.3-7.7) k/uL Glucose (74-99) mg/dL POC Glucose (mg/dL) 111 H 127 H (75-99) mg/dL Plasma Lactic Acid Khai 3.4 H* (0.7-2.0) mmol/L Total Protein (6.3-8.2) g/dL 01/27/17 01/28/17 01/28/17 Range/Units 19:59 06:22 06:22 WBC 12.6 H (3.8-10.6) k/uL Neutrophils # 9.9 H (1.3-7.7) k/uL Glucose 42 L* (74-99) mg/dL POC Glucose (mg/dL) (75-99) mg/dL Plasma Lactic Acid Khai 2.7 H* (0.7-2.0) mmol/L Total Protein 6.1 L (6.3-8.2) g/dL 01/28/17 01/28/17 Range/Units 06:43 07:02 WBC (3.8-10.6) k/uL Neutrophils # (1.3-7.7) k/uL Glucose (74-99) mg/dL POC Glucose (mg/dL) 55 L 61 L (75-99) mg/dL Plasma Lactic Acid Khai (0.7-2.0) mmol/L Total Protein (6.3-8.2) g/dL Assessment and Plan Plan: Impression Present on admission history of chronic constipation including large bowel obstruction secondary to sigmoid volvulus. Type 2 diabetes insulin-dependent History of a prior CVA History of cochlear implant with history of deafness Status post January 25 Robotic-assisted laparoscopic reduction of sigmoid volvulus with sigmoid colectomy and primary colo-[place] rectal anastomosis Electrolyte abnormality hypo-magnesium corrected Leukocytosis persist improving Episodes hypoglycemia Plan Continue Reglan 10 mg IV every 6 hours monitor the response Continue postop surgical care Diet advanced soft diet DVT and GI prophylaxis Increase activity Pain control Repeat labs in the morning IV antibiotic Flagyl and Levaquin as ordered Further recommendations pending The above impression and plan of care have been discussed and directed by signing physician. Martine Kurtz nurse practitioner acting as scribe for signing physician.
[2017-01-28] MEDS ORDERED: THIAMINE 100 MG/ML 2 ML VIAL IVP SCH (09:00)
[2017-01-28] MEDS ORDERED: POTASSIUM CHLORIDE ER 20 MEQ TAB.ER PO STA (09:00)
[2017-01-28] MEDS ORDERED: HYDROcodone/APAP 5-325MG 1 EACH TAB PO PRN (09:01)
[2017-01-28] MEDS ORDERED: INSPUCOR MISCELLANE PRN (10:27)
[2017-01-28] MEDS ORDERED: INSULIN PUMP BASAL RATES 1 EACH MISC MISCELLANE PRN (10:27)
[2017-01-28] MEDS ORDERED: INSULIN LISPRO (humaLOG) 300 UNIT/3 ML VIAL SQ PRN (10:27)
[2017-01-28] MEDS ORDERED: INSULIN PUMP MEAL BOLUS 1 UNIT MISC MISCELLANE SCH (10:32)
[2017-01-28 11:32] LABS: Glucose,Whole Blood 136 mg/dL (75-99)
[2017-01-28] MEDS ORDERED: metroNIDAZOLE 500 MG TAB PO SCH (12:00)
--- NOTE | 2017-01-28 15:00 | P.DS ---
Providers Date of admission: 01/25/17 10:33 Expected date of discharge: 01/28/17 Attending physician: Dia Easley Primary care physician: Jaswant Fernandez Hospital Course: 76-year-old female with a long-standing history of chronic constipation including the large bowel obstruction secondary to sigmoid volvus. Patient did have a colonoscopy which excluded any underlying neoplastic. Patient now presented to the hospital on the day of admission for a sigmoid colon resection for the above-mentioned findings patient underwent Robotic-assisted laparoscopic reduction of sigmoid volvulus with sigmoid colectomy and primary colo-[place] rectal anastomosis done on January 25. Patient was started on IV antibiotics monitored closely on the day of discharge patient was passing gas rectally afebrile and was felt to be appropriate to proceed with a discharge to home Impression discharge diagnosis Present on admission history of chronic constipation including large bowel obstruction secondary to sigmoid volvulus. Type 2 diabetes insulin-dependent History of a prior CVA History of cochlear implant with history of deafness Status post January 25 Robotic-assisted laparoscopic reduction of sigmoid volvulus with sigmoid colectomy and primary colo-[place] rectal anastomosis Electrolyte abnormality hypo-magnesium corrected Leukocytosis persist improving Episodes hypoglycemia The above impression and plan of care have been discussed and directed by signing physician. Martine Kurtz nurse practitioner acting as scribe for signing physician. Plan - Discharge Summary New Discharge Prescriptions: New Hydrocodone/Acetaminophen [[place] 5-325] 1 - 2 each PO Q6HR PRN #15 tab PRN Reason: Pain Levofloxacin [Levaquin] 500 mg PO DAILY #5 tab metroNIDAZOLE [Flagyl] 500 mg PO Q8HR #15 tab Continue Rosuvastatin [Crestor] 20 mg PO HS Multivitamins, Thera [Multivitamin (formulary)] 1 tab PO DAILY amLODIPine [Norvasc] 10 mg PO HS Insulin Glulisine (For Pump) [Apidra (For Pump)] 0.01 units SQ-PUMP CONTINUOUS Cholecalciferol [Vitamin D3] 1,000 unit PO DAILY Vit C/E/Zn/Coppr/Lutein/Zeaxan [Preservision Areds 2 Softgel] 1 cap PO DAILY Discontinued Pramipexole [Mirapex] 0.5 mg PO HS L.acidoph,Paracasei, B.lactis [Probiotic] 1 cap PO DAILY Discharge Medication List Cholecalciferol [Vitamin D3] 1,000 unit PO DAILY 01/18/17 [History] Insulin Glulisine (For Pump) [Apidra (For Pump)] 0.01 units SQ-PUMP CONTINUOUS 01/18/17 [History] Multivitamins, Thera [Multivitamin (formulary)] 1 tab PO DAILY 01/18/17 [History ] Rosuvastatin [Crestor] 20 mg PO HS 01/18/17 [History] Vit C/E/Zn/Coppr/Lutein/Zeaxan [Preservision Ared[place] 2 Softgel] 1 cap PO DAILY 12/28 [History] amLODIPine [Norvasc] 10 mg PO HS 01/18/17 [History] Hydrocodone/Acetaminophen [[place] 5-325] 1 - 2 each PO Q6HR PRN #15 tab 01/28/17 [Rx] Levofloxacin [Levaquin] 500 mg PO DAILY #5 tab 01/28/17 [Rx] metroNIDAZOLE [Flagyl] 500 mg PO Q8HR #15 tab 01/28/17 [Rx] Follow up Appointment(s)/Referral(s): Dia Easley MD [STAFF PHYSICIAN] - 02/02/17 Patient Instructions/Handouts: Colectomy (GEN), Laparoscopic Bowel Resection ( DC), Full Liquid Diet (GEN) Activity/Diet/Wound Care/Special Instructions: No lifting over 4 pounds in 2 weeks. May shower. No bath tub soaks. Dressing will be discontinued in the office. Discharge Disposition: HOME WITH HOME HEALTH SERVICES
[2017-01-29] MEDS ORDERED: LEVOFLOXACIN 500 MG TAB PO SCH (21:00)
== END 2017-01-28 15:08 | disposition home or self-care (01) | DRG 330 ==
LOC: 2ORWHC 10:33 → 3SUR 15:39
PROVIDERS: ADMIT Surgery Plastic and Reconstructive Surgery; ATTEND Surgery Plastic and Reconstructive Surgery
PROC: 0DTN4ZZ Resection of Sigmoid Colon, Percutaneous Endoscopic Approach (ICD-10-PCS; principal; 2017-01-25 12:30)
PROC: 8E0W4CZ Robotic Assisted Procedure of Trunk Region, Percutaneous Endoscopic Approach (ICD-10-PCS; principal; 2017-01-25 12:30)
DX: K56.2 Volvulus (principal); Q43.8 Other specified congenital malformations of intestine; I42.9 Cardiomyopathy, unspecified; I11.9 Hypertensive heart disease without heart failure; E83.42 Hypomagnesemia; E11.649 Type 2 diabetes mellitus with hypoglycemia without coma; H91.90 Unspecified hearing loss, unspecified ear; M19.91 Primary osteoarthritis, unspecified site; G47.33 Obstructive sleep apnea (adult) (pediatric); G43.909 Migraine, unspecified, not intractable, without status migrainosus; K44.9 Diaphragmatic hernia without obstruction or gangrene; K21.9 Gastro-esophageal reflux disease without esophagitis; F41.9 Anxiety disorder, unspecified; Z98.42 Cataract extraction status, left eye; Z96.41 Presence of insulin pump (external) (internal); Z79.4 Long term (current) use of insulin; Z79.899 Other long term (current) drug therapy; Z98.41 Cataract extraction status, right eye; Z90.710 Acquired absence of both cervix and uterus; Z86.73 Personal history of transient ischemic attack (TIA), and cerebral infarction without residual deficits
CPT/HCPCS: 74022; 80048; 80053; 83036; 83605; 83735; 84100; 84425; 85025; 88307; 93005

== ENCOUNTER → 2017-02-02 | Outpatient (CLI) | payer MEDICARE, BC ==
--- NOTE | 2017-02-02 17:28 | US ---
EXAMINATION TYPE: US VENOUS DOPPLER DUPLEX LE DATE OF EXAM: 02/02/2017 5:01 PM COMPARISON: NONE CLINICAL HISTORY: R22.42 Swelling L leg, R22.41 Swelling R leg. SIDE PERFORMED: Bilateral TECHNIQUE: The lower extremity deep venous system is examined utilizing real time linear array sonog kennedy with graded compression, doppler sonography and color-flow sonography. VESSELS IMAGED: External Iliac Vein (EIV) Common Femoral Vein Deep Femoral Vein Greater Saphenous Vein * Femoral Vein Popliteal Vein Small Saphenous Vein * Proximal Calf Veins (* superficial vessels) FINDINGS: Grayscale, color doppler, spectral doppler imaging performed of the deep veins of the lowe r extremities. There is normal flow, compressibility, and vascular waveforms. IMPRESSION: RIGHT LOWER EXTREMITY: NEGATIVE FOR DVT. LEFT LOWER EXTREMITY: NEGATIVE FOR DVT.
--- NOTE | 2017-02-02 17:36 | XR ---
EXAMINATION TYPE: XR abdomen 3V DATE OF EXAM: 02/02/2017 COMPARISON: 01/20/201700 abdominal roentgenograms HISTORY: History of bowel resection, bilateral lower limb swelling. TECHNIQUE: One upright and 2 supine views were obtained. FINDINGS: On the upright view there is no definite pneumoperitoneum. There is no pneumatosis. There a re, however, prominent loops of gas-distended bowel in the left upper quadrant, with gas fluid levels at dominantly the same horizontal plane. On the 2 supine views the gas distended loops of bowel are less distended than on the prior study, ap pearing to be improved since January 30, 2017. The visualized lung bases and pleural spaces are negative. The cardiac silhouette is normal. IMPRESSION: GAS-DISTENDED LOOPS OF BOWEL REMAIN, BUT WITH INTERVAL RADIOGRAPHIC IMPROVEMENT APPARENT.
[2017-02-02 20:37] LABS: CHCM 32.7; MCH 29.7 pg (25.0-35.0); MCHC 33.3 g/dL (31.0-37.0); MCV 89.2 fL (80.0-100.0); Mean Platelet Volume 8.7; RBC 4.71 m/uL (3.80-5.40); RDW 13.7 % (11.5-15.5); WBC 11.2 k/uL (3.8-10.6)
[2017-02-02 21:03] LABS: ALT 29 U/L (9-52); AST 31 U/L (14-36); Alkaline Phosphatase 67 U/L (38-126); Anion Gap 14 mmol/L; Blood Urea Nitrogen 16 mg/dL (7-17); Calcium 9.8 mg/dL (8.4-10.2); Carbon Dioxide 23 mmol/L (22-30); Chloride 101 mmol/L (98-107); Non-African American GFR(MDRD) >60 (>60 ml/min/1.73 sqM); Potassium 4.4 mmol/L (3.5-5.1); Sodium 138 mmol/L (137-145); Total Bilirubin 0.4 mg/dL (0.2-1.3); Total Protein 6.4 g/dL (6.3-8.2)
[2017-02-02 21:11] LABS: Glucose 42 mg/dL (74-99)
== END | disposition home or self-care (01) ==
LOC: RADUSMAIN 16:28
PROVIDERS: ATTEND Surgery Plastic and Reconstructive Surgery
DX: R22.43 Localized swelling, mass and lump, lower limb, bilateral (principal); R14.0 Abdominal distension (gaseous)
CPT/HCPCS: 36415; 74020; 80053; 83735; 85027; 93970

== ENCOUNTER 2017-03-02 09:19 | Day surgery (SDC) | payer MEDICARE, BC ==
[2017-02-26 13:35] VITALS: BMI 21.4
--- NOTE | 2017-03-02 09:15 | P.GSHP ---
History of Present Illness H&P Date: 03/02/17 CHIEF COMPLAINT: GERD and large bowel obstruction HISTORY OF PRESENT ILLNESS: The patient is a 76-year-old female who presents with gastroesophageal reflux disease and large bowel obstruction involving previous anastomosis. Upper and lower endoscopy were offered for further evaluation and management. PAST MEDICAL HISTORY: Please see list. PAST SURGICAL HISTORY: Please see list. MEDICATIONS: Please see list. ALLERGIES: Please see list. SOCIAL HISTORY: No illicit drug use FAMILY HISTORY: No reports of Crohn disease or ulcerative colitis. REVIEW OF ORGAN SYSTEMS: CONSTITUTIONAL: No reports of fevers or chills. GI: Denies any blood in stools or constipation. PHYSICAL EXAM: VITAL SIGNS: Stable GENERAL: Well-developed pleasant in no acute distress. HEENT: No scleral icterus. Extraocular movements grossly intact. Moist buccal mucosa. NECK: Supple without lymphadenopathy. CHEST: Unlabored respirations. Equal bilateral excursions. CARDIOVASCULAR: Regular rate and rhythm. Distal 2+ pulses. ABDOMEN: Soft, nondistended. MUSCULOSKELETAL: No clubbing, cyanosis, or edema. ASSESSMENT: 1. Gastroesophageal reflux disease 2. Large bowel obstruction. PLAN: 1. Recommend proceeding with an upper and lower endoscopy Past Medical History Past Medical History: CVA/TIA, Diabetes Mellitus, Hypertension, Osteoarthritis ( OA), Sleep Apnea/CPAP/BIPAP Additional Past Medical History / Comment(s): migraines, TIA, hx fx left hip- uses cane due to balance problems, no cpap used, hiatal hernia, irregular bowel movements, constipation, frequent night time urination, insulin pump, was in ER on 02/25/17 and had to have urinary catherization History of Any Multi-Drug Resistant Organisms: None Reported Past Surgical History: Appendectomy, Bowel Resection, Ear Surgery, Hysterectomy , Tonsillectomy Additional Past Surgical History / Comment(s): D&C x 2, shmuel cataracts, left ear cochlear implant Past Anesthesia/Blood Transfusion Reactions: Previous Problems w/ Anesthesia Additional Past Anesthesia/Blood Transfusion Reaction / Comment(s): slow coming out of anesthesia Smoking Status: Never smoker - Past Family History Son(s) Family Medical History: Cancer Medications and Allergies Home Medications Medication Instructions Recorded Confirmed Type Cholecalciferol [Vitamin D3] 1,000 unit PO DAILY 01/18/17 02/26/17 History Insulin Glulisine (For Pump) 0.01 units SQ-PUMP CONTINUOUS 01/18/17 02/26/17 History [Apidra (For Pump)] Multivitamins, Thera [Multivitamin 1 tab PO DAILY 01/18/17 02/26/17 History (formulary)] Rosuvastatin [Crestor] 20 mg PO HS 01/18/17 02/26/17 History Vit C/E/Zn/Coppr/Lutein/Zeaxan 1 cap PO DAILY 01/18/17 02/26/17 History [Preservision Areds 2 Softgel] amLODIPine [Norvasc] 10 mg PO HS 01/18/17 02/26/17 History Metoclopramide [Reglan] 10 mg PO TID 02/26/17 02/26/17 History Allergies Allergy/AdvReac Type Severity Reaction Status Date / Time No Known Allergies Allergy Verified 02/26/17 13:24
[~2017-03-02 09:19] MED LIST changes: -DEXAMETHASONE SOD PHOSPHATE 10 MG/ML 1 ML VIAL IV ONE; -HEPARIN SODIUM,PORCINE 5,000 UNIT/ML 1 ML VIAL SQ ONE; -HYDROmorphone 1 MG/ML 1 ML SYRINGE IVP PRN; +LACTATED RINGERS 1,000 ML IV SCH; +LIDOCAINE 1% 20 ML VIAL (10MG/ML) FOR IV START INTRADERMA PRN; -ONDANSETRON 4 MG/2 ML VIAL IVP ONE; -ceFAZolin 2 GM in SODIUM CHLORIDE 0.9% 100 ML IVPB ONE; -metroNIDAZOLE-NS PMX 500 MG in SALINE 1 100ML.BAG IVPB ONE
[2017-03-02 10:07] VITALS: TEMP 97.3
[2017-03-02] MEDS ORDERED: PROPOFOL 10 MG/ML 20 ML VIAL IV ONE (10:23)
[2017-03-02 10:27] LABS: Glucose,Whole Blood 101 mg/dL (75-99)
--- NOTE | 2017-03-02 10:43 | P.PCN ---
Date of Procedure: 03/02/17 Description of Procedure: PREOPERATIVE DIAGNOSIS: Gastroesophageal reflux disease. Dysphagia. POSTOPERATIVE DIAGNOSIS: Gastroesophageal reflux disease. Dysphagia. Diaphragmatic hiatal hernia without obstruction. Gastritis. OPERATION: Esophagogastroduodenoscopy with biopsies along antrum. SURGEON: Dia Easley MD ANESTHESIA: MAC. INDICATIONS: The patient is a 76-year-old female who presents with a history of reflux disease. Benefits and risks of the procedure were described. Informed consent was obtained. DESCRIPTION: The patient was brought into the endoscopy suite and laid in the left lateral decubitus position. An Olympus gastroscope was passed along the posterior oropharynx down to the distal esophagus where the squamocolumnar junction was encountered at 35 cm from the incisors. The stomach was entered and no bile reflux was found. Additional findings are listed below. Biopsies with cold forceps were obtained of the antrum. The first through third portion of the duodenum was examined and unremarkable. Retroflexion of the scope confirmed Hill grade 4 lower esophageal valve. The squamocolumnar junction demostrated LA grade B erosive esophagitis. The stomach was desufflated. The patient tolerated the procedure well. FINDINGS: Squamocolumnar junction 35 cm from the incisors. Diaphragmatic hiatus at 40 cm. Hiatal hernia 5 cm, 6, type III paraesophageal hiatal hernia. Hill grade 4 lower esophageal valve. LA grade B erosive esophagitis. No active duodenitis. Mild gastritis. RECOMMENDATIONS: Continue medical therapy. Further recommendations pending results of pathology report. Upper endoscopy as needed. Will benefit from antireflux surgical procedure
--- NOTE | 2017-03-02 10:46 | P.PCN ---
Date of Procedure: 03/02/17 Description of Procedure: PREOPERATIVE DIAGNOSIS: History of large bowel obstruction. Personal history of sigmoid volvulus. Chronic constipation. POSTOPERATIVE DIAGNOSIS: History of large bowel obstruction. Personal history of sigmoid volvulus. Chronic constipation. OPERATION: Flexible sigmoidoscopy to 70 cm from anal verge. SURGEON: Dia Easley MD. ANESTHESIA: MAC. INDICATIONS: The patient is a 76-year-old female who presents with history of large bowel obstruction including sigmoid volvulus. Benefits and risks were described and informed consent was obtained. DESCRIPTION OF PROCEDURE: The patient had no prep with a history of large bowel obstruction. She had been brought into the endoscopy suite and laid in the left lateral decubitus position. After adequate intravenous sedation, the rectum was examined with 2% lidocaine jelly. External hemorrhoids were encountered. The rectal tone was within normal limits. No submucosal lesions were palpated in the rectal vault. An Olympus colonoscope was advanced to the entire length of the flexible sigmoidoscope of 70 cm from the anal verge. Moderate solid stool was identified. No evidence of anastomosis stricture was found. The scope was removed with visualization of each mucosal fold. No colonic polyps were found. No evidence of focal colitis was found. The colon was desufflated. The patient had tolerated the procedure well. Withdrawal time was over 6 minutes. FINDINGS: External prolapsed hemorrhoids, grade 2. No arteriovenous malformations. No adenomatous polyps. No focal colitis. Moderate stool within the colon. No stricture along the recent anastomosis. RECOMMENDATIONS: Sigmoidoscopy as needed. Plan - Discharge Summary New Discharge Prescriptions: No Action Rosuvastatin [Crestor] 20 mg PO HS Multivitamins, Thera [Multivitamin (formulary)] 1 tab PO DAILY amLODIPine [Norvasc] 10 mg PO HS Insulin Glulisine (For Pump) [Apidra (For Pump)] 0.01 units SQ-PUMP CONTINUOUS Cholecalciferol [Vitamin D3] 1,000 unit PO DAILY Vit C/E/Zn/Coppr/Lutein/Zeaxan [Preservision Areds 2 Softgel] 1 cap PO DAILY Metoclopramide [Reglan] 10 mg PO TID Discharge Medication List Cholecalciferol [Vitamin D3] 1,000 unit PO DAILY 01/18/17 [History] Insulin Glulisine (For Pump) [Apidra (For Pump)] 0.01 units SQ-PUMP CONTINUOUS 01/18/17 [History] Multivitamins, Thera [Multivitamin (formulary)] 1 tab PO DAILY 01/18/17 [History ] Rosuvastatin [Crestor] 20 mg PO HS 01/18/17 [History] Vit C/E/Zn/Coppr/Lutein/Zeaxan [Preservision Areds 2 Softgel] 1 cap PO DAILY 12/28 [History] amLODIPine [Norvasc] 10 mg PO HS 01/18/17 [History] Metoclopramide [Reglan] 10 mg PO TID 02/26/17 [History]
[2017-03-02 11:13] LABS: Glucose,Whole Blood 116 mg/dL (75-99)
[2017-03-02 11:14] VITALS: BP 149/66; PULSE 84; RESP 16
[2017-03-02 11:21] LABS: CH 28.6; CHCM 32.5; HCT 37.6 % (34.0-46.0); HGB 12.6 gm/dL (11.4-16.0); MCH 29.6 pg (25.0-35.0); MCHC 33.5 g/dL (31.0-37.0); MCV 88.3 fL (80.0-100.0); RBC 4.25 m/uL (3.80-5.40); RDW 13.1 % (11.5-15.5); WBC (Perox) 6.49
[2017-03-02 11:22] LABS: Basophils % (A) 1 %; Eosinophils # (A) 0.2 k/uL (0-0.7); Eosinophils % (A) 3 %; Luc # (Auto) 0.17; Luc % (Auto) 3; Lymphocytes % (A) 17 %; Mean Platelet Volume 6.8; Monocytes # (A) 0.3 k/uL (0-1.0); Monocytes % (A) 6 %; Neutrophils # (A) 4.3 k/uL (1.3-7.7); Neutrophils % (A) 71 %
[2017-03-02 11:38] LABS: ALT 29 U/L (9-52); AST 18 U/L (14-36); Alkaline Phosphatase 58 U/L (38-126); Anion Gap 12 mmol/L; Blood Urea Nitrogen 14 mg/dL (7-17); Calcium 9.6 mg/dL (8.4-10.2); Carbon Dioxide 26 mmol/L (22-30); Chloride 99 mmol/L (98-107); Glucose 117 mg/dL (74-99); Non-African American GFR(MDRD) >60 (>60 ml/min/1.73 sqM); Potassium 3.8 mmol/L (3.5-5.1); Sodium 137 mmol/L (137-145); Total Bilirubin 0.6 mg/dL (0.2-1.3); Total Protein 6.6 g/dL (6.3-8.2)
--- NOTE | 2017-03-03 09:27 | P.PN ---
Progress Note - Text Patient had a Bradley catheter placement which was ordered by me 1 week ago for urinary retention. We'll discontinue Bradley as she will see the urologist tomorrow to evaluate residual volume. Flomax prescribed.
== END 2017-03-02 11:44 | disposition home or self-care (01) ==
LOC: ORWHC2ENDO 09:19
PROVIDERS: ATTEND Surgery Plastic and Reconstructive Surgery
DX: K21.9 Gastro-esophageal reflux disease without esophagitis (principal); K29.50 Unspecified chronic gastritis without bleeding; Z87.19 Personal history of other diseases of the digestive system; K44.9 Diaphragmatic hernia without obstruction or gangrene; K64.4 Residual hemorrhoidal skin tags; K59.09 Other constipation; E11.9 Type 2 diabetes mellitus without complications; Z79.4 Long term (current) use of insulin; Z96.41 Presence of insulin pump (external) (internal); E78.5 Hyperlipidemia, unspecified; G47.33 Obstructive sleep apnea (adult) (pediatric); Z79.899 Other long term (current) drug therapy
CPT/HCPCS: 88305; 80053; 85025; 88342; 43239; 45330; J2704; 45381

== ENCOUNTER → 2018-08-04 | Outpatient (CLI) | payer MEDICARE, BC ==
--- NOTE | 2018-08-04 16:27 | CT ---
EXAMINATION TYPE: CT brain wo/w con DATE OF EXAM: 08/04/2018 COMPARISON: 03/27/2010 HISTORY: Short term memory loss. CT DLP: 2369mGycm CONTRAST: CT scan of the head is performed without and with IV Contrast, patient injected with 100ml mL of Isov ue 300. Unenhanced followed by contrast enhanced CT of the brain is submitted for evaluation. There is extens caden streak artifact from a electronic device left mastoid region. The ventricles are midline. There is no evidence for intracranial hemorrhage or extra-axial collection. Physiologic calcifications of basal ganglia again noted. No mass effects are identified. Visualized bony calvarium is intact. Con trast is administered and no enhancing lesions are detected. No pathologic enhancement is identified . If symptoms persist consider MRI. IMPRESSION: No enhancing lesion or acute intracranial process.
== END ==
LOC: RADCTMAIN 14:47
PROVIDERS: ATTEND Family Medicine
DX: R41.3 Other amnesia (principal)
CPT/HCPCS: 82565; 84520; 70470; 36415; Q9967

== ENCOUNTER 2018-10-03 09:43 | Inpatient (IN) | payer MEDICARE, BC ==
[2018-10-03] MEDS ORDERED: SODIUM CHLORIDE 0.9% 1,000 ML IV ONE (11:14)
[2018-10-03] MEDS ORDERED: ONDANSETRON 4 MG/2 ML VIAL IVP STA (11:16)
[2018-10-03] MEDS ORDERED: ACETAMINOPHEN TAB 500 MG TAB PO STA (11:16)
--- NOTE | 2018-10-03 11:18 | ED ---
URI HPI <Billy Grigsby - Last Filed: 10/03/18 15:32> - General Source: family, RN notes reviewed, old records reviewed Mode of arrival: ambulatory Limitations: no limitations <Micki Pineda - Last Filed: 10/03/18 15:49> - General Chief Complaint: Upper Respiratory Infection Stated Complaint: Vomiting/ Broke her back two weeks ago Time Seen by Provider: 10/03/18 10:51 - History of Present Illness Initial Comments: Patient is a 77-year-old female who presents emergency Department today with complaints of nausea and vomiting for the past 2-3 weeks as well as cough congestion for the past 2-3 weeks. Patient reports symptoms started after she was hospitalized from falling and breaking her back. Patient reports that she was at [facility] and then later transferred tomorrow would [facility]. She was discharged from [facility] on . Patient states that she's been having some left-sided abdominal pain for the past few days. Surgical history includes colectomy due to a history of significant constipation from a long colon. Patient's surgeon is Dr. Howe. Patient's reports she's been losing 20 pounds over the past few weeks due to not eating and this nausea and vomiting. (Micki Pineda) - Related Data Home Medications Medication Instructions Recorded Confirmed Insulin Glulisine (For Pump) 0.01 units SQ-PUMP CONTINUOUS 01/18/17 10/03/18 [Apidra (For Pump)] Rosuvastatin [Crestor] 20 mg PO HS 01/18/17 10/03/18 amLODIPine [Norvasc] 10 mg PO DAILY 01/18/17 10/03/18 Donepezil [Aricept] 5 mg PO DAILY 10/03/18 10/03/18 Losartan Potassium 100 mg PO DAILY 10/03/18 10/03/18 Mirabegron [Myrbetriq] 25 mg PO DAILY 10/03/18 10/03/18 Omeprazole 20 mg PO DAILY 10/03/18 10/03/18 Polyethylene Glycol 3350 [Miralax] 17 gm PO DAILY 10/03/18 10/03/18 Pramipexole [Mirapex] 0.5 mg PO DAILY 10/03/18 10/03/18 Sennosides-Docusate Sodium 1 tab PO BID 10/03/18 10/03/18 [Senokot-S] Allergies Allergy/AdvReac Type Severity Reaction Status Date / Time No Known Allergies Allergy Verified 10/03/18 11:12 Review of Systems ROS Other: All systems not noted in ROS Statement are negative. <GrigsbyBilly - Last Filed: 10/03/18 15:32> ROS Other: All systems not noted in ROS Statement are negative. <Micki Pineda - Last Filed: 10/03/18 15:49> ROS Statement: Those systems with pertinent positive or pertinent negative responses have been documented in the HPI. Past Medical History Past Medical History: CVA/TIA, Diabetes Mellitus, Hypertension, Osteoarthritis (OA), Sleep Apnea/CPAP/BIPAP Additional Past Medical History / Comment(s): migraines, TIA, hx fx left hip- uses cane due to balance problems, no cpap used, hiatal hernia, irregular bowel movements, constipation, frequent night time urination, insulin pump, was in ER on 02/25/17 and had to have urinary catherization History of Any Multi-Drug Resistant Organisms: None Reported Past Surgical History: Appendectomy, Bowel Resection, Ear Surgery, Hysterectomy, Tonsillectomy Additional Past Surgical History / Comment(s): D&C x 2, shmuel cataracts, left ear cochlear implant Past Anesthesia/Blood Transfusion Reactions: Previous Problems w/ Anesthesia Additional Past Anesthesia/Blood Transfusion Reaction / Comment(s): slow coming out of anesthesia Past Psychological History: Anxiety Smoking Status: Never smoker Past Alcohol Use History: None Reported Past Drug Use History: None Reported - Past Family History Son(s) Family Medical History: Cancer <Micki Pineda - Last Filed: 10/03/18 15:49> General Exam Limitations: no limitations General appearance: alert, in no apparent distress Head exam: Present: atraumatic, normocephalic, normal inspection Eye exam: Present: normal appearance, PERRL, EOMI. Absent: scleral icterus, conjunctival injection, periorbital swelling ENT exam: Present: normal exam, mucous membranes moist Neck exam: Present: normal inspection. Absent: tenderness, meningismus, lymphadenopathy Respiratory exam: Present: normal lung sounds bilaterally. Absent: respiratory distress, wheezes, rales, rhonchi, stridor Cardiovascular Exam: Present: regular rate, normal rhythm, normal heart sounds. Absent: systolic murmur, diastolic murmur, rubs, gallop, clicks GI/Abdominal exam: Present: soft, tenderness (Left lower quadrant tenderness.), normal bowel sounds. Absent: distended, guarding, rebound, rigid Extremities exam: Present: normal inspection, full ROM, normal capillary refill. Absent: tenderness, pedal edema, joint swelling, calf tenderness Back exam: Present: normal inspection Neurological exam: Present: alert, oriented X3, CN II-XII intact Psychiatric exam: Present: normal affect, normal mood Skin exam: Present: warm, dry, intact, normal color. Absent: rash <Micki Pineda - Last Filed: 10/03/18 15:49> - General Exam Comments Initial Comments: 69-year-old female. Alert and oriented. No significant distress. (Micki Pineda) Course Vital Signs 10/03/18 10:38 Temperature 99.3 F Pulse Rate 103 H Respiratory 20 Rate Blood Pressure 147/76 O2 Sat by Pulse 98 Oximetry Medical Decision Making - Lab Data Result diagrams: 10/03/18 12:25 10/03/18 12:25 <Bilyl Grigsby - Last Filed: 10/03/18 15:32> - Lab Data Result diagrams: 10/03/18 12:25 10/03/18 12:25 - Radiology Data Radiology results: report reviewed <Micki Pineda - Last Filed: 10/03/18 15:49> - Medical Decision Making Case was discussed with practitioner Miriam. Chart reviewed. Results reviewed. Case was also discussed with Dr. eFrnandez, who will admit his patient. (Billy Grigsby) 69-year-old female presents weren't service today for cough congestion for the past 3 weeks. Symptoms started after she was hospitalized for a broken back after a fall 3 weeks ago. She is mentally extending care facility and now has brought her here due to weight loss and general fatigue and weakness. Patient's given IV fluids labwork obtained. Patient was found to be hyponatremic sodium 128. Calcium with cough congestion. Chest x-rays reviewed and negative for any acute process. Patient's KUB is normal. Patient did have a bowel movement ED. Urine samples negative for infection. At this time Patient 's concern taking her home due to progressive weakness. With her cough I will give her one dose of Rocephin and ED. Blood cultures were completed. (Micki Pineda) - Lab Data Lab Results 10/03/18 10/03/18 10/03/18 Range/Units 12:25 12:25 14:00 WBC 6.2 (3.8-10.6) k/uL RBC 4.42 (3.80-5.40) m/uL Hgb 13.0 (11.4-16.0) gm/dL Hct 38.3 (34.0-46.0) % MCV 86.6 (80.0-100.0) fL MCH 29.4 (25.0-35.0) pg MCHC 33.9 (31.0-37.0) g/dL RDW 13.4 (11.5-15.5) % Plt Count 220 (150-450) k/uL Neutrophils % 85 % Lymphocytes % 7 % Monocytes % 5 % Eosinophils % 1 % Basophils % 1 % Neutrophils # 5.3 (1.3-7.7) k/uL Lymphocytes # 0.4 L (1.0-4.8) k/uL Monocytes # 0.3 (0-1.0) k/uL Eosinophils # 0.1 (0-0.7) k/uL Basophils # 0.0 (0-0.2) k/uL Sodium 128 L (137-145) mmol/L Potassium 4.2 (3.5-5.1) mmol/L Chloride 91 L (98-107) mmol/L Carbon Dioxide 25 (22-30) mmol/L Anion Gap 12 mmol/L BUN 13 (7-17) mg/dL Creatinine 0.83 (0.52-1.04) mg/dL Est GFR (CKD-EPI)AfAm 79 (>60 ml/min/1.73 sqM) Est GFR (CKD-EPI)NonAf 68 (>60 ml/min/1.73 sqM) Glucose 255 H (74-99) mg/dL Calcium 9.5 (8.4-10.2) mg/dL Total Bilirubin 0.7 (0.2-1.3) mg/dL AST 17 (14-36) U/L ALT 26 (9-52) U/L Alkaline Phosphatase 112 (38-126) U/L Total Protein 6.4 (6.3-8.2) g/dL Albumin 3.8 (3.5-5.0) g/dL Amylase <30 L (30-110) U/L Lipase 61 (23-300) U/L Urine Color Yellow Urine Appearance Clear (Clear) Urine pH 6.5 (5.0-8.0) Ur Specific [place] 1.012 (1.001-1.035) Urine Protein Trace H (Negative) Urine Glucose (UA) Trace H (Negative) Urine Ketones Negative (Negative) Urine Blood Negative (Negative) Urine Nitrite Negative (Negative) Urine Bilirubin Negative (Negative) Urine Urobilinogen <2.0 (<2.0) mg/dL Ur Leukocyte Esterase Negative (Negative) 10/03/18 13:49 EKG shows sinus rhythm with first-degree AV block (dictation right bundle-branch block. Abnormal EKG noted. Ventricular rate of 81 bpm. [place] interval is 246 most seconds. Curious duration 142 ms. QT QTc is 432/501 ms. (Micki Pinead) - Radiology Data Chest x-ray is negative for any acute cardio pulmonary disease. Nonobstructive bowel gas pattern, follow-up is indicated. (Micki Pineda) Disposition <Billy Grigsby - Last Filed: 10/03/18 15:32> Is patient prescribed a controlled substance at d/c from ED?: No Time of Disposition: 15:49 <Micki Pineda - Last Filed: 10/03/18 15:49> Clinical Impression: Weakness generalized, Hyponatremia, Bronchitis, Nausea & vomiting Disposition: ADMITTED IP TO THIS HOSP Condition: Stable Referrals: Jaswant Fernandez MD [Primary Care Provider] - 1-2 days
[2018-10-03] MEDS: SODIUM CHLORIDE 0.9% 1,000 ML IV SCH ×2 (12:27→23:49)
[2018-10-03 12:50] LABS: Basophils % (A) 1 %; Eosinophils # (A) 0.1 k/uL (0-0.7); Eosinophils % (A) 1 %; HCT 38.3 % (34.0-46.0); Lymphocytes # (A) 0.4 k/uL (1.0-4.8); Lymphocytes % (A) 7 %; MCH 29.4 pg (25.0-35.0); MCHC 33.9 g/dL (31.0-37.0); MCV 86.6 fL (80.0-100.0); Monocytes # (A) 0.3 k/uL (0-1.0); Monocytes % (A) 5 %; Neutrophils # (A) 5.3 k/uL (1.3-7.7); Neutrophils % (A) 85 %; Platelet Count 220 k/uL (150-450); RBC 4.42 m/uL (3.80-5.40); RDW 13.4 % (11.5-15.5); WBC 6.2 k/uL (3.8-10.6)
[2018-10-03 12:57] LABS: ALT 26 U/L (9-52); AST 17 U/L (14-36); Albumin 3.8 g/dL (3.5-5.0); Alkaline Phosphatase 112 U/L (38-126); Amylase <30 U/L (30-110); Anion Gap 12 mmol/L; Blood Urea Nitrogen 13 mg/dL (7-17); Calcium 9.5 mg/dL (8.4-10.2); Carbon Dioxide 25 mmol/L (22-30); Chloride 91 mmol/L (98-107); Glucose 255 mg/dL (74-99); Lipase 61 U/L (23-300); Potassium 4.2 mmol/L (3.5-5.1); Sodium 128 mmol/L (137-145); Total Bilirubin 0.7 mg/dL (0.2-1.3); Total Protein 6.4 g/dL (6.3-8.2)
--- NOTE | 2018-10-03 13:30 | XR ---
EXAMINATION TYPE: XR chest 2V DATE OF EXAM: 10/03/2018 COMPARISON: 03/04/2012 HISTORY: Shortness of breath TECHNIQUE: Frontal and lateral views of the chest are obtained. FINDINGS: Scattered senescent parenchymal changes noted. Hyperinflation compatible with COPD. No evidence for infiltrate. No evidence for atelectasis. Heart size is stable. Mediastinal structures are stable and grossly unremarkable. No evidence for hilar prominence. Degenerative changes dorsal spine. IMPRESSION: 1. No evidence for acute pulmonary disease.
--- NOTE | 2018-10-03 13:45 | XR ---
Abdomen HISTORY: Cough and vomiting Frontal view of the abdomen submitted and correlated to prior abdomen 2 view 02/02/2017 There are air-filled loops of small and large bowel present. Vascular calcifications are noted incide ntally. Postop change noted to the left hip. There are overlying cardiac leads. Lung bases are not in cluded on exam. Postop changes noted in the left hemipelvis. Bone mineralization is reduced. IMPRESSION: Nonobstructive bowel gas pattern, follow-up as indicated.
[2018-10-03 14:20] LABS: Appearance,Urine Clear (Clear); Bilirubin,Urine Negative (Negative); Blood,Urine Negative (Negative); Color,Urine Yellow; Glucose,Urine (UA) Trace (Negative); Ketones,Urine Negative (Negative); Leukocyte Esterase,Urine Negative (Negative); Nitrite,Urine Negative (Negative); PH, Urine 6.5 (5.0-8.0); Protein,Urine Trace (Negative); Specific Gravity,Urine 1.012 (1.001-1.035); Urobilinogen,Urine <2.0 mg/dL (<2.0)
[2018-10-03] MEDS ORDERED: cefTRIAXone IN SWFI 1,000 MG/10 ML SYRINGE IVP STA (15:49)
[2018-10-03] MEDS ORDERED: MORPHINE SULFATE 4 MG/ML SYRINGE IV PRN (15:49)
[2018-10-03] MEDS ORDERED: IBUPROFEN 400 MG TAB PO PRN (15:49)
[2018-10-03] MEDS ORDERED: ONDANSETRON 4 MG/2 ML VIAL IVP PRN (15:49)
[2018-10-03] MEDS ORDERED: ACETAMINOPHEN TAB 325 MG TAB PO PRN (15:49)
[2018-10-03] MEDS ORDERED: NALOXONE 0.4 MG/ML 1 ML VIAL IV PRN (15:49)
[2018-10-03 20:37] VITALS: BMI 40.2
[2018-10-03 20:47] LABS: Glucose,Whole Blood 232 mg/dL (75-99)
[2018-10-04] MEDS: SODIUM CHLORIDE 0.9% 1,000 ML IV SCH ×2 (07:28→16:32)
[2018-10-04] MEDS: INSULIN ASPART (NovoLOG) 100 UNIT/ML VIAL SQ SCH ×4 (07:29→21:24)
[2018-10-04 07:31] LABS: Glucose,Whole Blood 167 mg/dL (75-99)
[2018-10-04] MEDS ORDERED: PANTOPRAZOLE 40 MG/10 ML VIAL IV SCH (09:00)
[2018-10-04 09:23] LABS: Basophils % (A) 1 %; Eosinophils # (A) 0.2 k/uL (0-0.7); Eosinophils % (A) 5 %; HCT 33.1 % (34.0-46.0); Lymphocytes # (A) 0.5 k/uL (1.0-4.8); Lymphocytes % (A) 10 %; MCH 28.7 pg (25.0-35.0); MCHC 33.3 g/dL (31.0-37.0); MCV 86.2 fL (80.0-100.0); Monocytes # (A) 0.3 k/uL (0-1.0); Monocytes % (A) 7 %; Neutrophils # (A) 3.8 k/uL (1.3-7.7); Neutrophils % (A) 75 %; Platelet Count 205 k/uL (150-450); RBC 3.84 m/uL (3.80-5.40); RDW 13.4 % (11.5-15.5)
[2018-10-04 09:24] LABS: Albumin 2.9 g/dL (3.5-5.0); Calcium 8.7 mg/dL (8.4-10.2); Potassium 3.7 mmol/L (3.5-5.1); Total Bilirubin 0.3 mg/dL (0.2-1.3); Total Protein 5.2 g/dL (6.3-8.2)
[2018-10-04] MEDS: LOSARTAN 50 MG TAB PO SCH (10:35)
[2018-10-04] MEDS: amLODIPine 10 MG TAB PO SCH (10:36)
[2018-10-04] MEDS: SENNOSIDES-DOCUSATE SODIUM 1 EACH TAB PO SCH ×2 (10:36→19:47)
[2018-10-04] MEDS: POLYETHYLENE GLYCOL 3350 17 GM POWD.PACK PO SCH (10:36)
[2018-10-04] MEDS: DONEPEZIL 5 MG TAB PO SCH (10:42)
[2018-10-04] MEDS: PRAMIPEXOLE 0.5 MG TAB PO SCH (10:42)
--- NOTE | 2018-10-04 11:55 | P.HPIM ---
History of Present Illness 77-year-old female presented to family physician with complaints of vomiting and cough for the last 2-3 weeks. Patient was recently hospitalized at [facility] for vertebral fracture she was later transferred to [facility]. Patient has history of colectomy with chronic constipation surgeon is Dr. Howe. Patient was evaluated in the emergency room for weakness cough and vomiting. Patient this morning states things have greatly improved. Patient noted to have fever last night Rocephin resumed Review of Systems Constitutional: Reports fatigue, Reports weakness Ears: bilateral: decreased hearing Respiratory: Reports cough Gastrointestinal: Reports vomiting Past Medical History Past Medical History: CVA/TIA, Diabetes Mellitus, Hypertension, Osteoarthritis (OA), Sleep Apnea/CPAP/BIPAP Additional Past Medical History / Comment(s): migraines, TIA, hx fx left hip- uses cane due to balance problems, no cpap used, hiatal hernia, irregular bowel movements, constipation, frequent night time urination, insulin pump, was in ER on 02/25/17 and had to have urinary catherization History of Any Multi-Drug Resistant Organisms: None Reported Past Surgical History: Appendectomy, Bowel Resection, Ear Surgery, Hysterectomy, Tonsillectomy Additional Past Surgical History / Comment(s): D&C x 2, shmuel cataracts, left ear cochlear implant Past Anesthesia/Blood Transfusion Reactions: Previous Problems w/ Anesthesia Additional Past Anesthesia/Blood Transfusion Reaction / Comment(s): slow coming out of anesthesia Past Psychological History: Anxiety Smoking Status: Never smoker Past Alcohol Use History: None Reported Past Drug Use History: None Reported - Past Family History Son(s) Family Medical History: Cancer Medications and Allergies Home Medications Medication Instructions Recorded Confirmed Type Insulin Glulisine (For Pump) 0.01 units SQ-PUMP CONTINUOUS 01/18/17 10/03/18 History [Apidra (For Pump)] Rosuvastatin [Crestor] 20 mg PO HS 01/18/17 10/03/18 History amLODIPine [Norvasc] 10 mg PO DAILY 01/18/17 10/03/18 History Donepezil [Aricept] 5 mg PO DAILY 10/03/18 10/03/18 History Losartan Potassium 100 mg PO DAILY 10/03/18 10/03/18 History Mirabegron [Myrbetriq] 25 mg PO DAILY 10/03/18 10/03/18 History Omeprazole 20 mg PO DAILY 10/03/18 10/03/18 History Polyethylene Glycol 3350 [Miralax] 17 gm PO DAILY 10/03/18 10/03/18 History Pramipexole [Mirapex] 0.5 mg PO DAILY 10/03/18 10/03/18 History Sennosides-Docusate Sodium 1 tab PO BID 10/03/18 10/03/18 History [Senokot-S] Allergies Allergy/AdvReac Type Severity Reaction Status Date / Time No Known Allergies Allergy Verified 10/03/18 11:12 Physical Exam Vitals: Vital Signs Temp Pulse Pulse Resp BP BP Pulse Ox 10/04/18 10:37 99.5 F 10/04/18 07:28 99.6 F 10/04/18 05:10 100.2 F H 93 20 142/65 94 L 10/03/18 20:54 98.0 F 88 16 156/64 97 10/03/18 18:49 98.2 F 10/03/18 18:00 79 16 131/59 96 10/03/18 17:00 78 17 130/63 95 10/03/18 16:22 75 16 123/65 95 10/03/18 16:00 77 16 118/99 95 Intake and Output 10/03/18 10/04/18 10/04/18 22:59 06:59 14:59 Other: Voiding Method Bedside Commode Incontinent # Voids 2 3 # Bowel Movements 1 2 - Constitutional General appearance: mild distress - EENT Eyes: PERRLA ENT: hard of hearing Ears: bilateral: normal - Neck Neck: normal ROM - Respiratory Respiratory: bilateral: CTA - Cardiovascular Rhythm: regular - Gastrointestinal General gastrointestinal: soft - Integumentary Integumentary: normal - Neurologic Neurologic: CNII-XII intact - Musculoskeletal Musculoskeletal: generalized weakness - Psychiatric Psychiatric: A&O x's 3, appropriate affect, intact judgment & insight Results CBC & Chem 7: 10/04/18 08:50 10/04/18 08:50 Labs: Abnormal Lab Results - Last 24 Hours (Table) 10/03/18 10/03/18 10/03/18 Range/Units 12:25 12:25 14:00 Hgb (11.4-16.0) gm/dL Hct (34.0-46.0) % Lymphocytes # 0.4 L (1.0-4.8) k/uL Sodium 128 L (137-145) mmol/L Chloride 91 L (98-107) mmol/L Glucose 255 H (74-99) mg/dL POC Glucose (mg/dL) (75-99) mg/dL Total Protein (6.3-8.2) g/dL Albumin (3.5-5.0) g/dL Amylase <30 L (30-110) U/L Urine Protein Trace H (Negative) Urine Glucose (UA) Trace H (Negative) 10/03/18 10/04/18 10/04/18 Range/Units 20:46 07:13 08:50 Hgb 11.0 L (11.4-16.0) gm/dL Hct 33.1 L (34.0-46.0) % Lymphocytes # 0.5 L (1.0-4.8) k/uL Sodium (137-145) mmol/L Chloride (98-107) mmol/L Glucose (74-99) mg/dL POC Glucose (mg/dL) 232 H 167 H (75-99) mg/dL Total Protein (6.3-8.2) g/dL Albumin (3.5-5.0) g/dL Amylase (30-110) U/L Urine Protein (Negative) Urine Glucose (UA) (Negative) 10/04/18 Range/Units 08:50 Hgb (11.4-16.0) gm/dL Hct (34.0-46.0) % Lymphocytes # (1.0-4.8) k/uL Sodium 132 L (137-145) mmol/L Chloride (98-107) mmol/L Glucose 144 H (74-99) mg/dL POC Glucose (mg/dL) (75-99) mg/dL Total Protein 5.2 L (6.3-8.2) g/dL Albumin 2.9 L (3.5-5.0) g/dL Amylase (30-110) U/L Urine Protein (Negative) Urine Glucose (UA) (Negative) Chest x-ray: report reviewed Thrombosis Risk Factor Assmnt - Choose All That Apply Any of the Below Risk Factors Present?: No Each Risk Factor Represents 3 Points: Age 75 years or older Thrombosis Risk Factor Assessment Total Risk Factor Score: 3 Thrombosis Risk Factor Assessment Level: Moderate Risk Assessment and Plan Plan: Assessment Generalized weakness Hyponatremia correcting Bronchitis purulent acute Nausea and vomiting resolving History of CVA/TIA Diabetes type 2 Hypertension Osteoarthritis sleep apnea with CPAP Plan Resume Rocephin continue IV therapy Hopeful discharge soon and morning
[2018-10-04 12:07] LABS: Glucose,Whole Blood 107 mg/dL (75-99)
[2018-10-04 17:13] LABS: Glucose,Whole Blood 171 mg/dL (75-99)
[2018-10-04 20:43] LABS: Glucose,Whole Blood 151 mg/dL (75-99)
[2018-10-04] MEDS ORDERED: ATORVASTATIN 40 MG TAB PO SCH (21:00)
[2018-10-04 21:07] VITALS: RESP 17
[2018-10-05] MEDS: SODIUM CHLORIDE 0.9% 1,000 ML IV SCH ×2 (03:45→12:31)
[2018-10-05 05:13] VITALS: BP 144/63; PULSE 82; TEMP 98.5
[2018-10-05] MEDS: INSULIN ASPART (NovoLOG) 100 UNIT/ML VIAL SQ SCH ×2 (07:13→12:31)
[2018-10-05 07:14] LABS: Glucose,Whole Blood 126 mg/dL (75-99)
[2018-10-05] MEDS: PRAMIPEXOLE 0.5 MG TAB PO SCH (08:01)
[2018-10-05] MEDS: LOSARTAN 50 MG TAB PO SCH (08:01)
[2018-10-05] MEDS: amLODIPine 10 MG TAB PO SCH (08:01)
[2018-10-05] MEDS: DONEPEZIL 5 MG TAB PO SCH (08:01)
[2018-10-05] MEDS: POLYETHYLENE GLYCOL 3350 17 GM POWD.PACK PO SCH (08:02)
[2018-10-05] MEDS: SENNOSIDES-DOCUSATE SODIUM 1 EACH TAB PO SCH (08:02)
[2018-10-05] MEDS ORDERED: PANTOPRAZOLE 40 MG TABLET PO SCH (09:00)
--- NOTE | 2018-10-05 11:27 | P.DS ---
Providers Date of admission: 10/04/18 08:56 Expected date of discharge: 10/05/18 Attending physician: Jaswant Fernandez Primary care physician: Jaswant Fernandez [facility] Course: 77-year-old female presented to family physician with complaints of intractable vomiting. Patient had just been in extended care facility. Also patient also had cough since discharge. Patient was evaluated in the emergency room Rocephin was given antibiotics given patient improved at this point and wanting to be discharged home Assessment generalized weakness Hyponatremia correcting Acute bronchitis Nausea and vomiting History of CVA/TIA Diabetes type 2 Hypertension Osteoarthritis Sleep apnea on CPAP machine Plan Discharged home to Patient Condition at Discharge: Stable Plan - Discharge Summary New Discharge Prescriptions: New Amoxicillin/Potassium Clav [Augmentin 875-125 Tablet] 1 tab PO Q12HR #20 tab Acetaminophen Tab [Tylenol] 650 mg PO Q6HR PRN tab PRN Reason: Mild Pain Or Fever > 100.5 Continue Rosuvastatin [Crestor] 20 mg PO HS amLODIPine [Norvasc] 10 mg PO DAILY Insulin Glulisine (For Pump) [Apidra (For Pump)] 0.01 units SQ-PUMP CONTINUOUS Donepezil [Aricept] 5 mg PO DAILY Losartan Potassium 100 mg PO DAILY Mirabegron [Myrbetriq] 25 mg PO DAILY Omeprazole 20 mg PO DAILY Pramipexole [Mirapex] 0.5 mg PO DAILY Sennosides-Docusate Sodium [Senokot-S] 1 tab PO BID Polyethylene Glycol 3350 [Miralax] 17 gm PO DAILY Discharge Medication List Insulin Glulisine (For Pump) [Apidra (For Pump)] 0.01 units SQ-PUMP CONTINUOUS 01/18/17 [History] Rosuvastatin [Crestor] 20 mg PO HS 01/18/17 [History] amLODIPine [Norvasc] 10 mg PO DAILY 01/18/17 [History] Donepezil [Aricept] 5 mg PO DAILY 10/03/18 [History] Losartan Potassium 100 mg PO DAILY 10/03/18 [History] Mirabegron [Myrbetriq] 25 mg PO DAILY 10/03/18 [History] Omeprazole 20 mg PO DAILY 10/03/18 [History] Polyethylene Glycol 3350 [Miralax] 17 gm PO DAILY 10/03/18 [History] Pramipexole [Mirapex] 0.5 mg PO DAILY 10/03/18 [History] Sennosides-Docusate Sodium [Senokot-S] 1 tab PO BID 10/03/18 [History] Acetaminophen Tab [Tylenol] 650 mg PO Q6HR PRN tab 10/05/18 [Rx] Amoxicillin/Potassium Clav [Augmentin 875-125 Tablet] 1 tab PO Q12HR #20 tab 10/05/18 [Rx] Follow up Appointment(s)/Referral(s): Jaswant Fernandez MD [Primary Care Provider] - 1-[address] [facility], [NON-STAFF] -
[2018-10-05 11:58] LABS: Glucose,Whole Blood 177 mg/dL (75-99)
[2018-10-05] MEDS ORDERED: MORPHINE ORAL SOLN 10 MG/5 ML CUP PO PRN (12:08)
== END 2018-10-05 13:52 | disposition home health service (06) | DRG 202 ==
LOC: EC 09:43 → 4SSUR 15:32 → 4MS4W 18:18 → OBSVTOIN 10-04 08:56
PROVIDERS: ADMIT Family Medicine; ATTEND Family Medicine
DX: J20.9 Acute bronchitis, unspecified (principal); E87.1 Hypo-osmolality and hyponatremia; I45.10 Unspecified right bundle-branch block; E11.9 Type 2 diabetes mellitus without complications; I10 Essential (primary) hypertension; K59.09 Other constipation; H91.90 Unspecified hearing loss, unspecified ear; G43.909 Migraine, unspecified, not intractable, without status migrainosus; I44.0 Atrioventricular block, first degree; M19.90 Unspecified osteoarthritis, unspecified site; G47.30 Sleep apnea, unspecified; K44.9 Diaphragmatic hernia without obstruction or gangrene; Z79.4 Long term (current) use of insulin; Z79.899 Other long term (current) drug therapy; Z96.41 Presence of insulin pump (external) (internal); Z91.81 History of falling; Z86.73 Personal history of transient ischemic attack (TIA), and cerebral infarction without residual deficits; Z90.49 Acquired absence of other specified parts of digestive tract; Z90.710 Acquired absence of both cervix and uterus; Z87.81 Personal history of (healed) traumatic fracture; Z96.21 Cochlear implant status; Z98.42 Cataract extraction status, left eye; Z98.41 Cataract extraction status, right eye
CPT/HCPCS: 36415; 71046; 74018; 80053; 81003; 82150; 83690; 85025; 87040; 93005; 96361; 96374; 96375; 99285